=== PATIENT | female | born 1985 | race Caucasian/White ===

== ENCOUNTER 2019-05-21 14:00 | Inpatient (IN) | payer OTHER ==
[~2019-05-21 14:00] MED LIST: Bupivacaine 0.25% 10 ML SDV ONE
[2019-05-21] MEDS ORDERED: Sodium Chloride 0.9% 10 ML Syringe FLUSH PRN (14:06)
[2019-05-21] MEDS ORDERED: Ondansetron 4 MG/2 ML SDV IVPUSH PRN (14:06)
[2019-05-21] MEDS ORDERED: Nalbuphine 10 MG/1 ML Vial IVPUSH PRN (14:06)
[2019-05-21] MEDS ORDERED: Calcium Carbonate 500 MG Tab.Chew PO PRN (14:06)
[2019-05-21] MEDS ORDERED: Oxytocin/Lactated Ringers 10 UNIT/1,000 ML BAG IV SCH (14:15)
[2019-05-21] MEDS ORDERED: Lactated Ringers 1,000 ML IV SCH (14:15)
[2019-05-21] MEDS ORDERED: Betamethasone Acetate/Betamethasone Sod Phosphate 30 MG/5 ML MDV IM SCH (15:00)
[2019-05-21] MEDS ORDERED: Misoprostol 25 MCG (1/4 of 100 MCG) Tab ONE (15:05)
[2019-05-21] MEDS: Misoprostol 25 MCG (1/4 of 100 MCG) Tab VAG SCH ×3 (15:29→23:39)
[2019-05-21] MEDS ORDERED: Lidocaine 1% 50 ML MDV INJECT ONE (15:30)
--- NOTE | 2019-05-21 16:12 | PCM.PREANE ---
Preanesthetic Assessment - Procedure Proposed Procedure: latoya - Anesthesia/Transfusion/Family Hx Anesthesia History: Prior Anesthesia Without Reaction Family History of Anesthesia Reaction: No Transfusion History: No Prior Transfusion(s) - Review of Systems General: No Symptoms Pulmonary: No Symptoms Cardiovascular: No Symptoms Gastrointestinal: Nausea (on and off), Other (gerd) Neurological: No Symptoms Other: Reports: Anxiety - Physical Assessment Vital Signs: 97.5 16 96% 94 113/58 Height: 5 ft 6 in Weight: 138.21 kg ASA Class: 2 Mental Status: Alert & Oriented x3 Airway Class: Mallampati = 1 Dentition: Reports: Normal Dentition Thyro-Mental Finger Breadths: 3 Mouth Opening Finger Breadths: 3 ROM/Head Extension: Full Lungs: Clear to Auscultation, Normal Respiratory Effort Cardiovascular: Regular Rate, Regular Rhythm - Lab Values: Laboratory Last Values WBC 10.70 K/mm3 (3.98-10.04) H 05/21/19 14:20 RBC 4.65 M/mm3 (3.98-5.22) 05/21/19 14:20 Hgb 13.5 gm/dl (11.2-15.7) 05/21/19 14:20 Hct 40.2 % (34.1-44.9) 05/21/19 14:20 MCV 86.5 fl (79.4-94.8) 05/21/19 14:20 MCH 29.0 pg (25.6-32.2) 05/21/19 14:20 MCHC 33.6 g/dl (32.2-35.5) 05/21/19 14:20 RDW Std Deviation 42.3 fL (36.4-46.3) 05/21/19 14:20 Plt Count 314 K/mm3 (182-369) 05/21/19 14:20 MPV 11.1 fl (9.4-12.3) 05/21/19 14:20 Neut % (Auto) 74.7 % (34.0-71.1) H 05/21/19 14:20 Lymph % (Auto) 17.7 % (19.3-51.7) L 05/21/19 14:20 [place] % (Auto) 6.7 % (4.7-12.5) 05/21/19 14:20 Eos % (Auto) 0.5 (0.7-5.8) L 05/21/19 14:20 Baso % (Auto) 0.2 % (0.1-1.2) 05/21/19 14:20 Neut # (Auto) 8.00 K/mm3 (1.56-6.13) H 05/21/19 14:20 Lymph # (Auto) 1.89 K/mm3 (1.18-3.74) 05/21/19 14:20 Wood # (Auto) 0.72 K/mm3 (0.24-0.36) H 05/21/19 14:20 Eos # (Auto) 0.05 K/mm3 (0.04-0.36) 05/21/19 14:20 Baso # (Auto) 0.02 K/mm3 (0.01-0.08) 05/21/19 14:20 Sodium 136 mEq/L (136-145) 05/21/19 14:20 Potassium 4.1 mEq/L (3.5-5.1) 05/21/19 14:20 Chloride 102 mEq/L (98-107) 05/21/19 14:20 Carbon Dioxide 20 mEq/L (21-32) L 05/21/19 14:20 Anion Gap 18.1 (5-15) H 05/21/19 14:20 BUN 8 mg/dL (7-18) 05/21/19 14:20 Creatinine 0.7 mg/dL (0.55-1.02) 05/21/19 14:20 Est Cr Clr Drug Dosing 107.01 mL/min 05/21/19 14:20 Estimated GFR (MDRD) > 60 mL/min (>60) 05/21/19 14:20 BUN/Creatinine Ratio 11.4 (14-18) L 05/21/19 14:20 Glucose 133 mg/dL (74-106) H 05/21/19 14:20 Calcium 10.1 mg/dL (8.5-10.1) 05/21/19 14:20 Total Bilirubin 0.4 mg/dL (0.2-1.0) 05/21/19 14:20 AST 29 U/L (15-37) 05/21/19 14:20 ALT 57 U/L (14-59) 05/21/19 14:20 Alkaline Phosphatase 142 U/L (46-116) H 05/21/19 14:20 Total Protein 7.2 g/dl (6.4-8.2) 05/21/19 14:20 Albumin 2.7 g/dl (3.4-5.0) L 05/21/19 14:20 Globulin 4.5 gm/dL 05/21/19 14:20 Albumin/Globulin Ratio 0.6 (1-2) L 05/21/19 14:20 - Allergies Allergies/Adverse Reactions: Allergies Allergy/AdvReac Type Severity Reaction Status Date / Time No Known Allergies Allergy Verified 05/21/19 15:04 - Blood Blood Available: No - Acknowledgements Anesthesia Type Planned: Epidural Pt an Appropriate Candidate for the Planned Anesthesia: Yes Alternatives and Risks of Anesthesia Discussed w Pt/Guardian: Yes Pt/Guardian Understands and Agrees with Anesthesia Plan: Yes PreAnesthesia Questionnaire Cardiovascular History: Reports: None Respiratory History: Reports: Asthma (outgrew it- albuteral inhaler with colds) Gastrointestinal History: Reports: GERD : 1 (36 6 weeks) Para: 0 Psychiatric History: Reports: Anxiety Endocrine/Metabolic History: Reports: Obesity/BMI 30+ Oncologic (Cancer) History: Reports: None - Past Surgical History HEENT Surgical History: Reports: Tonsillectomy - SUBSTANCE USE Smoking Status *Q: Never Smoker Tobacco Use Within Last Twelve Months: No Second Hand Smoke Exposure: No Days Per Week of Alcohol Use: 0 Recreational Drug Use History: No - HOME MEDS Home Medications: Home Meds Doxylamine Succinate [Unisom] 25 mg PO BEDTIME 05/21/19 [History] Pnv No.122/Iron/Folic Acid [ Multi Tablet] 1 each PO DAILY 05/21/19 [ History] - CURRENT (IN HOUSE) MEDS Current Meds: Current Medications Betamethasone Acet/Betameth SodPhos (Celestone Soluspan 6 Mg/Ml) 12 mg IM Q24H BALWINDER Stop: 05/22/19 15:01 Last Admin: 05/21/19 15:25 Dose: 12 mg Calcium Carbonate/Glycine (Tums) 1,000 mg PO Q2H PRN PRN Reason: Indigestion Lactated Ringer's (Ringers, Lactated) 1,000 mls @ 100 mls/hr IV ASDIRECTED BALWINDER Oxytocin/Lactated Ringer's (Pitocin In Lr 10 Units/1,000 Ml) 10 unit in 1,000 mls @ 12 mls/hr IV TITRATE BALWINDER; Protocol Misoprostol (Cytotec) 25 mcg VAG Q4H BALWINDER Last Admin: 05/21/19 15:29 Dose: 25 mcg Nalbuphine HCl (Nubain) 10 mg IVPUSH Q2H PRN PRN Reason: Pain Ondansetron HCl (Zofran) 4 mg IVPUSH Q4H PRN PRN Reason: Nausea/Vomiting Sodium Chloride (Saline Flush) 10 ml FLUSH ASDIRECTED PRN PRN Reason: Keep Vein Open Discontinued Medications Lidocaine HCl (Xylocaine 1%) 20 ml INJECT ONETIME ONE Stop: 05/21/19 15:31 Misoprostol (Cytotec) Confirm Administered Dose 25 mcg .ROUTE .STK-MED ONE Stop: 05/21/19 15:06
--- NOTE | 2019-05-21 16:48 | PCM.LDHP ---
L&D History of Present Illness - General Date of Service: 05/21/19 Admit Problem/Dx: Patient Status Order with Admit Dx/Problem 05/21/19 14:06 Patient Status [ADT] Routine Admission Diagnosis/Problem Admission Diagnosis/Problem Source of Information: Patient History Limitations: Reports: No Limitations - History of Present Illness Introduction:: Patient is a 33 y/o at 36 5/7 wks being admitted for presumed cholestasis of . Seen last week in clinic with pronounced itching across arms, legs, abdomen. Bile acids done previously and 5. Since last appointment these symptoms have worsened somewhat. Not able to sleep at night without Unisom due to itching. Has been trying a lot of lotion for concerns as well. Notes good FM. 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: : 1 Para: 0 LMP (Approximate): Psychiatric History: Reports: Anxiety, Depression Endocrine/Metabolic History: Reports: Obesity/BMI 30+ - Past Surgical History HEENT Surgical History: Reports: Tonsillectomy Social & Family History - Family History Family Medical History: Noncontributory - Tobacco Use Smoking Status *Q: Never Smoker Second Hand Smoke Exposure: No - Alcohol Use Alcohol Use History: No Days Per Week of Alcohol Use: 0 - Recreational Drug Use Recreational Drug Use: No H&P Review of Systems - Review of Systems: Review Of Systems: See Below General: Reports: No Symptoms Pulmonary: Reports: No Symptoms Cardiovascular: Reports: No Symptoms Gastrointestinal: Reports: No Symptoms Genitourinary: Reports: No Symptoms Musculoskeletal: Reports: No Symptoms Skin: Reports: Pruritis Psychiatric: Reports: No Symptoms Neurological: Reports: No Symptoms L&D Exam - Exam Exam: See Below - Vital Signs Vital Signs: Last Vital Signs Temp 36.4 C 05/21/19 14:06 Pulse 94 05/21/19 14:06 Resp 16 05/21/19 14:06 BP 113/58 L 05/21/19 14:06 Pulse Ox 96 05/21/19 14:06 Weight: 138.21 kg - OB Specific Contraction Intensity: Irritability Movement: Active Heart Tones: Present Heart Tones per Min: 135 Heart Rate (FHR) Variability: Moderate (6-25 bmp) Presentation: Vertex - Dickens Score Dickens Score Cervix Position: Midposition Dickens Score Consistency: Soft Dickens Score Effacement: 51-70% Dickens Score Dilation: 1-2 cm Dickens Score Infant's Station: -2 Dickens Score Total: 7 - Exam General: Alert, Oriented, Cooperative Lungs: Clear to Auscultation, Normal Respiratory Effort Cardiovascular: Regular Rate, Regular Rhythm GI/Abdominal Exam: Soft, Non-Tender Genitourinary: Normal external exam Extremities: Normal Inspection Skin: Warm, Dry, Intact - Patient Data Lab Results Last 24 hrs: Laboratory Results - last 24 hr 05/21/19 05/21/19 Range/Units 14:20 14:20 WBC 10.70 H (3.98-10.04) K/mm3 RBC 4.65 (3.98-5.22) M/mm3 Hgb 13.5 (11.2-15.7) gm/dl Hct 40.2 (34.1-44.9) % MCV 86.5 (79.4-94.8) fl MCH 29.0 (25.6-32.2) pg MCHC 33.6 (32.2-35.5) g/dl RDW Std Deviation 42.3 (36.4-46.3) fL Plt Count 314 (182-369) K/mm3 MPV 11.1 (9.4-12.3) fl Neut % (Auto) 74.7 H (34.0-71.1) % Lymph % (Auto) 17.7 L (19.3-51.7) % [place] % (Auto) 6.7 (4.7-12.5) % Eos % (Auto) 0.5 L (0.7-5.8) Baso % (Auto) 0.2 (0.1-1.2) % Neut # (Auto) 8.00 H (1.56-6.13) K/mm3 Lymph # (Auto) 1.89 (1.18-3.74) K/mm3 [place] # (Auto) 0.72 H (0.24-0.36) K/mm3 Eos # (Auto) 0.05 (0.04-0.36) K/mm3 Baso # (Auto) 0.02 (0.01-0.08) K/mm3 Sodium 136 (136-145) mEq/L Potassium 4.1 (3.5-5.1) mEq/L Chloride 102 (98-107) mEq/L Carbon Dioxide 20 L (21-32) mEq/L Anion Gap 18.1 H (5-15) BUN 8 (7-18) mg/dL Creatinine 0.7 (0.55-1.02) mg/dL Est Cr Clr Drug Dosing 107.01 mL/min Estimated GFR (MDRD) > 60 (>60) mL/min BUN/Creatinine Ratio 11.4 L (14-18) Glucose 133 H (74-106) mg/dL Calcium 10.1 (8.5-10.1) mg/dL Total Bilirubin 0.4 (0.2-1.0) mg/dL AST 29 (15-37) U/L ALT 57 (14-59) U/L Alkaline Phosphatase 142 H (46-116) U/L Total Protein 7.2 (6.4-8.2) g/dl Albumin 2.7 L (3.4-5.0) g/dl Globulin 4.5 gm/dL Albumin/Globulin Ratio 0.6 L (1-2) Result Diagrams: 05/21/19 14:20 05/21/19 14:20 - Problem List (1) 36 weeks gestation of SNOMED Code(s): 73931143 ICD Code: Z3A.36 - 36 WEEKS GESTATION OF Status: Acute Current Visit: Yes (2) GBS (group B Streptococcus carrier), +RV culture, currently SNOMED Code(s): 0532575366620, 803333608, 1374775376835 ICD Code: O99.820 - STREPTOCOCCUS B CARRIER STATE COMPLICATING Status: Acute Current Visit: Yes (3) Rubella non-immune status, antepartum SNOMED Code(s): 429858609 ICD Code: O99.89 - OTH DISEASES AND CONDITIONS COMPL PREG/CHLDBRTH; Z28.3 - UNDERIMMUNIZATION STATUS Status: Acute Current Visit: Yes (4) Cholestasis during SNOMED Code(s): 783814277 ICD Code: O26.619 - LIVER AND BILIARY TRACT DISORD IN , UNSP TRIMESTER; K83.1 - OBSTRUCTION OF BILE DUCT Status: Acute Current Visit: Yes Qualifiers: Trimester: third trimester Qualified Code(s): O26.613 - Liver and biliary tract disorders in , third trimester; K83.1 - Obstruction of bile duct Problem List Initiated/Reviewed/Updated: Yes Orders Last 24hrs: Active Orders 24 hr Category Date Time Status Patient Status [ADT] Routine ADT 05/21/19 14:06 Active Activity as Tolerated [RC] PFP Care 05/21/19 14:06 Active Communication Order [RC] ASDIRECTED Care 05/21/19 14:06 Active Communication Order [RC] ASDIRECTED Care 05/21/19 14:06 Active Communication Order [RC] ASDIRECTED Care 05/21/19 14:06 Active Communication Order [RC] ASDIRECTED Care 05/21/19 14:06 Active Monitoring [RC] INTERMITTENT Care 05/21/19 14:06 Active Notify Provider [RC] ASDIRECTED Care 05/21/19 14:06 Active Notify Provider [RC] PFP Care 05/21/19 14:06 Active Notify Provider [RC] PRN Care 05/21/19 14:06 Active Peripheral IV Care [RC] . DIRECTED Care 05/21/19 14:08 Active Pump Management, Intrathecal [RC] ASDIRECTED Care 05/21/19 14:08 Active Urinary Catheter Assessment [RC] ASDIRECTED Care 05/21/19 14:06 Active Regular Diet [DIET] Diet 05/21/19 Lunch Active BLOOD BANK HOLD SPECIMEN [BBK] Stat Lab 05/21/19 14:06 Ordered RAPID PLASMA REAGIN,RPR [CHEM] Stat Lab 05/21/19 14:06 Ordered Betamet Acet/Betamet Na Phos [Celestone Soluspan 6 MG/ Med 05/21/19 15:00 Active ML] 12 mg IM Q24H Calcium Carbonate [Tums] Med 05/21/19 14:06 Active 1,000 mg PO Q2H PRN Lactated Ringers [Ringers, Lactated] 1,000 ml Med 05/21/19 14:15 Active IV ASDIRECTED Nalbuphine [Nubain] Med 05/21/19 14:06 Active 10 mg IVPUSH Q2H PRN Ondansetron [Zofran] Med 05/21/19 14:06 Active 4 mg IVPUSH Q4H PRN Oxytocin/Lactated Ringers [Pitocin in LR 10 Units/1,000 Med 05/21/19 14:15 Active ML] 10 unit in 1,000 ml IV TITRATE Sodium Chloride 0.9% [Saline Flush] Med 05/21/19 14:06 Active 10 ml FLUSH ASDIRECTED PRN miSOPROStol [Cytotec] Med 05/21/19 15:30 Active 25 mcg VAG Q4H Electronic Heart Tones Ext w TOCO [WOMSER] Oth 05/21/19 14:06 Ordered Routine Electronic Heart Tones Internal [WOMSER] Per Unit Oth 05/21/19 14:06 Ordered Routine Peripheral IV Insertion Adult [OM.PC] Routine Oth 05/21/19 14:06 Ordered Resuscitation Status Routine Resus Stat 05/21/19 14:06 Ordered Medication Orders Betamethasone Acet/Betameth SodPhos (Celestone Soluspan 6 Mg/Ml) 12 mg IM Q24H BALWINDER Stop: 05/22/19 15:01 Last Admin: 05/21/19 15:25 Dose: 12 mg Calcium Carbonate/Glycine (Tums) 1,000 mg PO Q2H PRN PRN Reason: Indigestion Lactated Ringer's (Ringers, Lactated) 1,000 mls @ 100 mls/hr IV ASDIRECTED BALWINDER Oxytocin/Lactated Ringer's (Pitocin In Lr 10 Units/1,000 Ml) 10 unit in 1,000 mls @ 12 mls/hr IV TITRATE BALWINDER; Protocol Misoprostol (Cytotec) 25 mcg VAG Q4H BALWINDER Last Admin: 05/21/19 15:29 Dose: 25 mcg Nalbuphine HCl (Nubain) 10 mg IVPUSH Q2H PRN PRN Reason: Pain Ondansetron HCl (Zofran) 4 mg IVPUSH Q4H PRN PRN Reason: Nausea/Vomiting Sodium Chloride (Saline Flush) 10 ml FLUSH ASDIRECTED PRN PRN Reason: Keep Vein Open Assessment/Plan Comment:: Patient admitted for IOL for presumed cholestasis of * Bile acids pending * Labs drawn * Cytotec for start of IOL. Pitocin when able * Will need PCN in labor once becomes more active * Pain management per patient preference * Anticipate * MMR after delivery
[2019-05-21] MEDS ORDERED: DOXYLAMINE 25 MG PO SCH (21:00)
[2019-05-22] MEDS ORDERED: Penicillin G Potassium 5 MILLUNITS in Sodium Chloride 0.9% 100 ML IV ONE (04:00)
[2019-05-22] MEDS ORDERED: fentaNYL 100 MCG/2 ML SDV ONE (04:56)
[2019-05-22] MEDS ORDERED: diphenhydrAMINE 50 MG/ML SDV IVPUSH PRN ×2 (05:15→06:02)
[2019-05-22] MEDS ORDERED: fentaNYL/Bupivacaine/NS 2 MCG-0.125% 250 ML EPIDUR PRN (05:15)
[2019-05-22] MEDS ORDERED: fentaNYL 100 MCG/2 ML SDV EPIDUR PRN (05:15)
[2019-05-22] MEDS ORDERED: ePHEDrine 50 MG/ML SDV IVPUSH PRN (05:15)
[2019-05-22] MEDS ORDERED: ceFAZolin 2 GM in Premix Bag 1 BAG IV ONE (05:22)
[2019-05-22] MEDS ORDERED: ceFAZolin 1 GM in Premix Bag 1 BAG IV ONE (05:22)
[2019-05-22] MEDS ORDERED: Metoclopramide 10 MG/2 ML SDV IVPUSH ONE (05:22)
[2019-05-22] MEDS ORDERED: Citric Acid/Sodium Citrate Solution 30 ML Cup PO ONE (05:22)
[2019-05-22] MEDS ORDERED: ceFAZolin/Dextrose,Iso-Osmotic 2 GM/50 ML Duplex Bag IV ONE (05:25)
[2019-05-22] MEDS ORDERED: Azithromycin 500 MG in Sodium Chloride 0.9% 250 ML IV ONE (05:25)
[2019-05-22] MEDS ORDERED: Morphine PF 10 MG/10 ML SDV ONE (05:45)
[2019-05-22] MEDS ORDERED: Ketorolac 30 MG/ML SDV ONE (05:45)
[2019-05-22] MEDS ORDERED: Ondansetron 4 MG/2 ML SDV ONE (05:45)
[2019-05-22] MEDS ORDERED: Oxytocin 10 Units/1 ML SDV ONE (05:45)
[2019-05-22] MEDS ORDERED: Lactated Ringers 2,000 ML ONE (05:45)
[2019-05-22] MEDS ORDERED: ceFAZolin 1 GM Vial ONE (05:47)
[2019-05-22] MEDS ORDERED: Phenylephrine/Normal Saline 100 MCG/ML 10 ML Syringe ONE (05:48)
[2019-05-22] MEDS ORDERED: ePHEDrine/Normal Saline 25 MG/5 ML Syringe ONE (05:48)
[2019-05-22] MEDS ORDERED: Lidocaine 0.5% 50 ML SDV ONE (05:59)
[2019-05-22] MEDS ORDERED: Lidocaine 2% with EPINEPHrine 1:200,000 20 ML SDV ONE (05:59)
[2019-05-22] MEDS ORDERED: fentaNYL 100 MCG/2 ML SDV IVPUSH PRN (06:02)
[2019-05-22] MEDS ORDERED: Ondansetron 4 MG/2 ML SDV IVPUSH PRN (06:02)
[2019-05-22] MEDS: Methylergonovine 0.2 MG/1 ML Amp ONE (06:15)
--- NOTE | 2019-05-22 06:59 | PCM.OPNOTE ---
- General Post-Op/Procedure Note Date of Surgery/Procedure: 05/22/19 Operative Procedure(s): Primary low transverse Findings: Baby girl in a vertex presentation. APGARS of 2, 6, 8. Weight of 5 lbs 12 oz. Normal appearance of the uterus, fallopian tubes, and ovaries. Pre Op Diagnosis: 36 6/7 weeks. Presumed cholestasis of (bile acids pending). NRFS Post-Op Diagnosis: Same Anesthesia Technique: Epidural Primary Surgeon: Catalina Nobles Secondary Surgeon: Monique Olsen Anesthesia Provider: Kareem Richardson Reason Demand Planning Analyst Was Necessary: BMI of patient. Emergent nature of procedure. Speed and patient safety Pathology: Cord gas segment obtained. Cord blood obtained. Fluid Replacement, Intraop: 1,850 Output, Urine Amount: 25 EBL in mLs: 1,500 Complications: None Condition: Good Free Text/Narrative:: The risks, benefits, indications, potential complications, and alternatives were explained to the patient and informed consent obtained. After induction of anesthesia, the patient was placed in a supine position and then draped and prepped in the usual sterile manner. A Pfannenstiel incision was made and carried down through the subcutaneous tissue to the fascia. Fascial incision was made and extended transversely. The fascia was from the underlying rectus tissue superiorly and inferiorly. The peritoneum was identified and entered. Peritoneal incision was extended longitudinally. The utero-vesical peritoneal reflection was incised transversely and the bladder flap was bluntly freed from the lower uterine segment. A low transverse uterine incision was made sharply with a scalpel and extended bluntly in a cephalocaudad direction. A baby girl was delivered from a vertex presentation with APGARS as above. After the umbilical cord was clamped a segment was obtained for cord gas evaluation. Cord blood was obtained as well. The placenta was removed intact and appeared normal. The uterus was exteriorized and cleared of clots. The uterine outline, tubes and ovaries appeared normal. The uterine incision was closed with running locked sutures of 0 Vicryl. Hemostasis was obtained with a second imbricating layer of 0 Vicryl in addition to several interrupted sutures placed in figure of eight style. The uterus was then placed back into the abdomen. Uterus slightly abraided in area of hysterotomy. Alexei-seal placed along this surface. The infracolic gutters were cleared of blood clots. The fascia was then reapproximated with running sutures of 1 PDS. The subcutaneous tissue was irrigated with sterile warm normal saline, hemostasis obtained with cautery. This layer was closed with a running 0 vicryl suture. The skin was reapproximated with running Subcuticular 4-0 monocryl sutures. Instrument, sponge, and needle counts were correct prior the abdominal closure and at the conclusion of the case.
--- NOTE | 2019-05-22 07:03 | PCM.POSTAN ---
POST ANESTHESIA ASSESSMENT - MENTAL STATUS Mental Status: Alert, Oriented - VITAL SIGNS Vital Signs: Last Vital Signs Temp 97.7 F 05/22/19 06:39 Pulse 95 05/22/19 06:39 Resp 18 05/22/19 06:39 BP 108/63 05/22/19 06:39 Pulse Ox 97 05/22/19 06:39 - RESPIRATORY Respiratory Status: Respiratory Rate WNL, Airway Patent, O2 Saturation Stable, Supplemental Oxygen - CARDIOVASCULAR CV Status: Pulse Rate WNL, Blood Pressure Stable - GASTROINTESTINAL GI Status: No Symptoms - POST OP HYDRATION Hydration Status: Adequate & Stable
[2019-05-22] MEDS ORDERED: Dextrose 5%-Lactated Ringers 1,000 ML IV SCH (07:48)
[2019-05-22] MEDS: Misoprostol 25 MCG (1/4 of 100 MCG) Tab VAG SCH (07:52)
[2019-05-22] MEDS ORDERED: Penicillin G Potassium 2.5 MILLUNITS in Sodium Chloride 0.9% 100 ML IV SCH (08:00)
--- NOTE | 2019-05-22 08:05 | PCM48HPAN ---
Post Anesthesia Note - EVALUATION WITHIN 48HRS OF ANESTHETIC Vital Signs in Normal Range: Yes Patient Participated in Evaluation: Yes Respiratory Function Stable: Yes Airway Patent: Yes Cardiovascular Function Stable: Yes Hydration Status Stable: Yes Pain Control Satisfactory: Yes Nausea and Vomiting Control Satisfactory: Yes Mental Status Recovered: Yes Vital Signs: Last Vital Signs Temp 36.6 C 05/22/19 07:30 Pulse 83 05/22/19 07:30 Resp 19 05/22/19 07:30 BP 96/62 05/22/19 07:30 Pulse Ox 100 05/22/19 07:30
--- NOTE | 2019-05-22 08:36 | CR ---
Abdomen: Supine view of the abdomen was obtained. Comparison: No previous study. Bowel gas pattern appears normal. No abnormal calcifications or discrete soft tissue abnormality is seen. Bony structures appear within normal limits. Impression: 1. Nothing acute seen on single supine abdominal x-ray. Diagnostic code #1
[2019-05-22] MEDS ORDERED: Lactated Ringers 500 ML IV ONE (11:21)
[2019-05-22] MEDS: diphenhydrAMINE 50 MG/ML SDV IVPUSH PRN ×2 (12:02→20:06)
[2019-05-22] MEDS: Ketorolac 30 MG/ML SDV IVPUSH SCH ×2 (12:21→19:36)
--- NOTE | 2019-05-22 21:27 | PCM.SN ---
- Free Text/Narrative Note: Late entry - 529 Patient had received 3rd dose of cytotec around 2340. SROM around 0330. No further augmentation begun after this time. Patient became very uncomfortable and requested epidural. While nursing staff trying to get longer tracing prior to epidural they noted possible deceleration. I was on unit and performed SVE and noted patient to be 2-3 cm dilated, but 90% effaced. FSE applied with release of further clear fluid. With FSE able to see deep, wide, recurrent variables into the 60's lasting 45-[address] PHOTOGRAPHER already on unit. Epidural placed while OR crew alerted for stat . Patient given ancef and Azithromycin. Verbal consent obtained at time. Written consent obtained after conclusion of case. Catalina Nobles MD
[2019-05-23] MEDS: Ketorolac 30 MG/ML SDV IVPUSH SCH (01:30)
[2019-05-23] MEDS ORDERED: Ibuprofen 600 MG Tab PO PRN (06:00)
--- NOTE | 2019-05-23 07:20 | PCM.PNPP ---
- General Info Date of Service: 05/23/19 Functional Status: Reports: Pain Controlled, Tolerating Diet, Ambulating - Review of Systems General: Reports: No Symptoms Pulmonary: Reports: No Symptoms Cardiovascular: Reports: No Symptoms Gastrointestinal: Reports: Abdominal Pain (managed with medications ) Genitourinary: Reports: No Symptoms Musculoskeletal: Reports: No Symptoms - General Info Date of Service: 05/23/19 - Patient Data Vital Signs - Most Recent: Last Vital Signs Temp 36.7 C 05/22/19 08:03 Pulse 86 05/23/19 04:31 Resp 14 05/23/19 05:00 BP 109/63 05/23/19 04:31 Pulse Ox 95 05/23/19 04:31 Weight - Most Recent: 138.21 kg I&O - Last 24 Hours: Intake & Output 05/22/19 05/23/19 05/23/19 22:59 06:59 14:59 Intake Total 4550 Output Total 1375 550 Balance 3175 -550 Lab Results - Last 24 Hours: Laboratory Results - last 24 hr 05/22/19 Range/Units 05:39 Gel Antibody Screen Negative Med Orders - Current: Current Medications Diphenhydramine HCl (Benadryl) 25 mg IVPUSH Q6H PRN PRN Reason: Itching or Nausea Last Admin: 05/22/19 20:06 Dose: 25 mg Docusate Sodium (Colace) 100 mg PO Q12H PRN PRN Reason: Constipation Ibuprofen (Motrin) 600 mg PO Q6H PRN PRN Reason: mild pain or fever Ondansetron HCl (Zofran) 4 mg IVPUSH ONETIME PRN PRN Reason: Nausea/Vomiting Oxycodone/Acetaminophen (Percocet 325-5 Mg) 1 - 2 tab PO Q4H PRN PRN Reason: Pain (moderate 4-6) Discontinued Medications Betamethasone Acet/Betameth SodPhos (Celestone Soluspan 6 Mg/Ml) 12 mg IM Q24H [facility] Stop: 05/22/19 15:01 Last Admin: 05/21/19 15:25 Dose: 12 mg Bupivacaine HCl (Sensorcaine-Mpf 0.25%) 10 ml .ROUTE .STK-MED ONE Stop: 05/21/19 00:01 Calcium Carbonate/Glycine (Tums) 1,000 mg PO Q2H PRN PRN Reason: Indigestion Cefazolin Sodium (Ancef) Confirm Administered Dose 1 gm .ROUTE .STK-MED ONE Stop: 05/22/19 05:48 Cefazolin Sodium/Dextrose (Ancef) Confirm Administered Dose 2 gm IV .STK-MED ONE Stop: 05/22/19 05:26 Last Admin: 05/22/19 07:54 Dose: Not Given Citric Acid/Sodium Citrate (Bicitra Solution) 30 ml PO ONETIME ONE Stop: 05/22/19 05:23 Last Admin: 05/22/19 07:53 Dose: Not Given Diphenhydramine HCl (Benadryl) 25 mg IVPUSH Q6H PRN PRN Reason: pruritis Ephedrine Sulfate (Ephedrine Sulfate) 5 mg IVPUSH ASDIRECTED PRN PRN Reason: Hypotension Ephedrine Sulfate (Ephedrine In Ns) Confirm Administered Dose 25 mg .ROUTE .STK- MED ONE Stop: 05/22/19 05:49 Fentanyl (Sublimaze) Confirm Administered Dose 100 mcg .ROUTE .STK-MED ONE Stop: 05/22/19 04:57 Last Admin: 05/22/19 07:52 Dose: Not Given Fentanyl (Sublimaze) 100 mcg EPIDUR Q3H PRN PRN Reason: Pain Last Admin: 05/22/19 05:33 Dose: 100 mcg Fentanyl (Sublimaze) 50 mcg IVPUSH Q5M PRN PRN Reason: Pain Fentanyl/Bupivacaine HCl (Fentanyl/Bupivacaine/Ns 2 Mcg-0.125% 250 Ml) 0 ml EPIDUR CONTINUOUS PRN PRN Reason: Pain Lactated Ringer's (Ringers, Lactated) 1,000 mls @ 100 mls/hr IV ASDIRECTED [facility] Last Admin: 05/22/19 04:10 Dose: 100 mls/hr Oxytocin/Lactated Ringer's (Pitocin In Lr 10 Units/1,000 Ml) 10 unit in 1,000 mls @ 12 mls/hr IV TITRATE [facility]; Protocol Penicillin G Potassium 5 (millunits/ Sodium Chloride) 100 mls @ 55 mls/hr IV ONETIME ONE Stop: 05/22/19 05:49 Last Admin: 05/22/19 04:10 Dose: 55 mls/hr Penicillin G Potassium 2.5 (millunits/ Sodium Chloride) 100 mls @ 55 mls/hr IV Q4H [facility] Cefazolin Sodium/Dextrose 2 gm (/ Premix) 50 mls @ 100 mls/hr IV ONETIME ONE Stop: 05/22/19 05:51 Last Admin: 05/22/19 05:30 Dose: 100 mls/hr Cefazolin Sodium/Dextrose 1 gm (/ Premix) 50 mls @ 100 mls/hr IV ONETIME ONE Stop: 05/22/19 05:51 Last Admin: 05/22/19 05:20 Dose: 100 mls/hr Azithromycin 500 mg/ Sodium (Chloride) 250 mls @ 250 mls/hr IV ONETIME ONE Stop: 05/22/19 06:24 Last Admin: 05/22/19 05:30 Dose: 250 mls/hr Cefazolin Sodium/Dextrose (Ancef) Confirm Administered Dose 50 mls @ as directed .ROUTE .STK-MED ONE Stop: 05/22/19 05:26 Last Admin: 05/22/19 07:54 Dose: Not Given Lactated Ringer's (Ringers, Lactated) Confirm Administered Dose 2,000 mls @ as directed .ROUTE .STK-MED ONE Stop: 05/22/19 05:46 Dextrose/Lactated Ringer's (Dextrose 5%-Lactated Ringers) 1,000 mls @ 125 mls/ hr IV ASDIRECTED [facility] Stop: 05/22/19 15:47 Last Admin: 05/22/19 13:27 Dose: 125 mls/hr Lactated Ringer's (Ringers, Lactated) 500 mls @ 500 mls/hr IV .BOLUS ONE Stop: 05/22/19 12:20 Last Admin: 05/22/19 11:48 Dose: 500 mls/hr Ketorolac Tromethamine (Toradol) Confirm Administered Dose 30 mg .ROUTE .STK- MED ONE Stop: 05/22/19 05:46 Ketorolac Tromethamine (Toradol) 30 mg IVPUSH Q6H [facility] Stop: 05/23/19 00:31 Last Admin: 05/23/19 01:30 Dose: 30 mg Lidocaine HCl (Xylocaine 1%) 20 ml INJECT ONETIME ONE Stop: 05/21/19 15:31 Last Admin: 05/22/19 07:53 Dose: Not Given Lidocaine HCl (Xylocaine-Mpf 0.5%) Confirm Administered Dose 50 ml .ROUTE .STK- MED ONE Stop: 05/22/19 06:00 Lidocaine/Epinephrine (Xylocaine-Mpf 2%-Epi 1:200,000) Confirm Administered Dose 20 ml .ROUTE .STK-MED ONE Stop: 05/22/19 06:00 Methylergonovine Maleate (Methergine) Confirm Administered Dose 0.2 mg .ROUTE .STK-MED ONE Stop: 05/22/19 05:55 Metoclopramide HCl (Reglan) 10 mg IVPUSH ONETIME ONE Stop: 05/22/19 05:23 Last Admin: 05/22/19 07:54 Dose: Not Given Misoprostol (Cytotec) 25 mcg VAG Q4H [facility] Last Admin: 05/22/19 07:52 Dose: Not Given Misoprostol (Cytotec) Confirm Administered Dose 25 mcg .ROUTE .STK-MED ONE Stop: 05/21/19 15:06 Last Admin: 05/21/19 17:10 Dose: Not Given Morphine Sulfate (Duramorph Pf) Confirm Administered Dose 10 mg .ROUTE .STK-MED ONE Stop: 05/22/19 05:46 Nalbuphine HCl (Nubain) 10 mg IVPUSH Q2H PRN PRN Reason: Pain Ondansetron HCl (Zofran) 4 mg IVPUSH Q4H PRN PRN Reason: Nausea/Vomiting Ondansetron HCl (Zofran) Confirm Administered Dose 4 mg .ROUTE .STK-MED ONE Stop: 05/22/19 05:46 Oxytocin (Pitocin) Confirm Administered Dose 10 unit .ROUTE .STK-MED ONE Stop: 05/22/19 05:46 Doxylamine 25mg Tab (Own Med) 0 each PO BEDTIME [facility] Last Admin: 05/22/19 07:53 Dose: Not Given Phenylephrine HCl (Phenylephrine In Ns 100 Mcg/Ml) Confirm Administered Dose 1 mg .ROUTE .STK-MED ONE Stop: 05/22/19 05:49 Sodium Chloride (Saline Flush) 10 ml FLUSH ASDIRECTED PRN PRN Reason: Keep Vein Open - Infant Interaction Disposition, : in Room with Family Infant Interaction: Holding Infant Infant Feeding: Attempted ; Nursed Fair/Poor Support Person: - Recovery Exam Fundal Tone: Firm Fundal Level: At Umbilicus Fundal Placement: Midline Lochia Amount: Small Lochia Color: Rubra/Red Perineum Description: Intact, Minimal Bruising/Swelling Urinary Elimination: Indwelling Catheter - Exam General: Alert, Oriented, Cooperative Lungs: Clear to Auscultation, Normal Respiratory Effort Cardiovascular: Regular Rate, Regular Rhythm GI/Abdominal Exam: Soft, Tender (appropriate post op) Extremities: Normal Inspection Skin: Warm, Dry, Intact Wound/Incisions: Healing Well, No Drainage - Problem List & Annotations (1) 36 weeks gestation of SNOMED Code(s): 03954018 Code(s): Z3A.36 - 36 WEEKS GESTATION OF Status: Acute Current Visit: Yes (2) GBS (group B Streptococcus carrier), +RV culture, currently SNOMED Code(s): 4120823869542, 261613484, 9391191871293 Code(s): O99.820 - STREPTOCOCCUS B CARRIER STATE COMPLICATING Status: Acute Current Visit: Yes (3) Rubella non-immune status, antepartum SNOMED Code(s): 811046627 Code(s): O99.89 - OTH DISEASES AND CONDITIONS COMPL PREG/CHLDBRTH; Z28.3 - UNDERIMMUNIZATION STATUS Status: Acute Current Visit: Yes (4) Cholestasis during SNOMED Code(s): 499263055 Code(s): O26.619 - LIVER AND BILIARY TRACT DISORD IN , UNSP TRIMESTER; K83.1 - OBSTRUCTION OF BILE DUCT Status: Acute Current Visit: Yes Qualifiers: Trimester: third trimester Qualified Code(s): O26.613 - Liver and biliary tract disorders in , third trimester; K83.1 - Obstruction of bile duct (5) Non-reassuring electronic monitoring tracing SNOMED Code(s): 815900411 Code(s): O76 - ABNLT IN HEART RATE AND RHYTHM COMP LABOR AND DELIVERY Status: Acute Current Visit: Yes (6) Primary central sleep apnea SNOMED Code(s): 1907997989442 Code(s): G47.31 - PRIMARY CENTRAL SLEEP APNEA Status: Acute Current Visit : Yes (7) S/P primary low transverse SNOMED Code(s): 546338097, 36093943, 352953488, 232095000, 165653997 Code(s): Z98.891 - HISTORY OF UTERINE SCAR FROM PREVIOUS SURGERY Status: Acute Current Visit: Yes - Problem List Review Problem List Initiated/Reviewed/Updated: Yes - My Orders Last 24 Hours: My Active Orders 05/22/19 07:48 Activity as Tolerated [RC] .Routine Antiembolic Devices [RC] PER UNIT ROUTINE Communication Order [RC] PER UNIT ROUTINE Intake and Output [RC] Q4H Notify Provider Intake and Out [RC] ASDIRECTED RT Incentive Spirometry [RC] Q2HWA Acetaminophen/oxyCODONE [Percocet 325-5 MG] 1 - 2 tab PO Q4H PRN Docusate Sodium [Colace] 100 mg PO Q12H PRN diphenhydrAMINE [Benadryl] 25 mg IVPUSH Q6H PRN Assess Lochia [WOMSER] Per Unit Routine Assess Uterine Involution [WOMSER] Per Unit Routine Breast Pump [WOMSER] Per Unit Routine Peripheral IV Discontinue [OM.PC] Routine Sequential Compression Device [OM.PC] Per Unit Routine 05/22/19 Breakfast Regular Diet [DIET] 05/23/19 06:00 Ibuprofen [Motrin] 600 mg PO Q6H PRN 05/23/19 06:45 CBC W/O DIFF,HEMOGRAM [HEME] AM 05/23/19 06:55 Urinary Catheter Removal [RC] Per Unit Routine - Assessment Assessment:: 33 y/o G1 now P0101 POD#1 from [facility] at 36 6/7 wks for NRFS - Plan Plan:: * Routine cares * Encourage breast feeding * discharge home in 2 days
[2019-05-23] MEDS: Docusate Sodium 100 MG Cap PO PRN (08:13)
[2019-05-23] MEDS: Acetaminophen/oxyCODONE 325-5 MG Tab PO PRN ×4 (08:13→22:23)
[2019-05-23] MEDS: Methylergonovine 0.2 MG/1 ML Amp ONE (11:21)
[2019-05-24] MEDS: Acetaminophen/oxyCODONE 325-5 MG Tab PO PRN ×3 (06:54→19:36)
--- NOTE | 2019-05-24 06:57 | PCM.PNPP ---
- General Info Date of Service: 05/24/19 Functional Status: Reports: Pain Controlled, Tolerating Diet, Ambulating, Urinating - Review of Systems General: Reports: No Symptoms Pulmonary: Reports: No Symptoms Cardiovascular: Reports: No Symptoms Gastrointestinal: Reports: No Symptoms Genitourinary: Reports: No Symptoms Musculoskeletal: Reports: No Symptoms Skin: Denies: Pruritis (Completely resolved at this time) - Patient Data Vital Signs - Most Recent: Last Vital Signs Temp 36.7 C 05/24/19 03:02 Pulse 80 05/24/19 03:02 Resp 14 05/24/19 03:02 BP 107/69 05/24/19 03:02 Pulse Ox 96 05/24/19 03:02 Weight - Most Recent: 138.21 kg I&O - Last 24 Hours: Intake & Output 05/23/19 05/23/19 05/24/19 14:59 22:59 06:59 Intake Total 240 300 Output Total 1850 Balance -1610 300 Lab Results - Last 24 Hours: Laboratory Results - last 24 hr 05/23/19 Range/Units 06:45 WBC 12.20 H (3.98-10.04) K/mm3 RBC 3.35 L (3.98-5.22) M/mm3 Hgb 9.6 L D (11.2-15.7) gm/dl Hct 29.9 L (34.1-44.9) % MCV 89.3 (79.4-94.8) fl MCH 28.7 (25.6-32.2) pg MCHC 32.1 L (32.2-35.5) g/dl RDW Std Deviation 43.2 (36.4-46.3) fL Plt Count 240 (182-369) K/mm3 MPV 11.5 (9.4-12.3) fl Med Orders - Current: Current Medications Diphenhydramine HCl (Benadryl) 25 mg IVPUSH Q6H PRN PRN Reason: Itching or Nausea Last Admin: 05/22/19 20:06 Dose: 25 mg Docusate Sodium (Colace) 100 mg PO Q12H PRN PRN Reason: Constipation Last Admin: 05/23/19 08:13 Dose: 100 mg Ibuprofen (Motrin) 600 mg PO Q6H PRN PRN Reason: mild pain or fever Ondansetron HCl (Zofran) 4 mg IVPUSH ONETIME PRN PRN Reason: Nausea/Vomiting Oxycodone/Acetaminophen (Percocet 325-5 Mg) 1 - 2 tab PO Q4H PRN PRN Reason: Pain (moderate 4-6) Last Admin: 05/24/19 06:54 Dose: 1 tab Discontinued Medications Betamethasone Acet/Betameth SodPhos (Celestone Soluspan 6 Mg/Ml) 12 mg IM Q24H [facility] Stop: 05/22/19 15:01 Last Admin: 05/21/19 15:25 Dose: 12 mg Bupivacaine HCl (Sensorcaine-Mpf 0.25%) 10 ml .ROUTE .STK-MED ONE Stop: 05/21/19 00:01 Calcium Carbonate/Glycine (Tums) 1,000 mg PO Q2H PRN PRN Reason: Indigestion Cefazolin Sodium (Ancef) Confirm Administered Dose 1 gm .ROUTE .STK-MED ONE Stop: 05/22/19 05:48 Cefazolin Sodium/Dextrose (Ancef) Confirm Administered Dose 2 gm IV .STK-MED ONE Stop: 05/22/19 05:26 Last Admin: 05/22/19 07:54 Dose: Not Given Citric Acid/Sodium Citrate (Bicitra Solution) 30 ml PO ONETIME ONE Stop: 05/22/19 05:23 Last Admin: 05/22/19 07:53 Dose: Not Given Diphenhydramine HCl (Benadryl) 25 mg IVPUSH Q6H PRN PRN Reason: pruritis Ephedrine Sulfate (Ephedrine Sulfate) 5 mg IVPUSH ASDIRECTED PRN PRN Reason: Hypotension Ephedrine Sulfate (Ephedrine In Ns) Confirm Administered Dose 25 mg .ROUTE .STK- MED ONE Stop: 05/22/19 05:49 Fentanyl (Sublimaze) Confirm Administered Dose 100 mcg .ROUTE .STK-MED ONE Stop: 05/22/19 04:57 Last Admin: 05/22/19 07:52 Dose: Not Given Fentanyl (Sublimaze) 100 mcg EPIDUR Q3H PRN PRN Reason: Pain Last Admin: 05/22/19 05:33 Dose: 100 mcg Fentanyl (Sublimaze) 50 mcg IVPUSH Q5M PRN PRN Reason: Pain Fentanyl/Bupivacaine HCl (Fentanyl/Bupivacaine/Ns 2 Mcg-0.125% 250 Ml) 0 ml EPIDUR CONTINUOUS PRN PRN Reason: Pain Lactated Ringer's (Ringers, Lactated) 1,000 mls @ 100 mls/hr IV ASDIRECTED [facility] Last Admin: 05/22/19 04:10 Dose: 100 mls/hr Oxytocin/Lactated Ringer's (Pitocin In Lr 10 Units/1,000 Ml) 10 unit in 1,000 mls @ 12 mls/hr IV TITRATE [facility]; Protocol Penicillin G Potassium 5 (millunits/ Sodium Chloride) 100 mls @ 55 mls/hr IV ONETIME ONE Stop: 05/22/19 05:49 Last Admin: 05/22/19 04:10 Dose: 55 mls/hr Penicillin G Potassium 2.5 (millunits/ Sodium Chloride) 100 mls @ 55 mls/hr IV Q4H [facility] Cefazolin Sodium/Dextrose 2 gm (/ Premix) 50 mls @ 100 mls/hr IV ONETIME ONE Stop: 05/22/19 05:51 Last Admin: 05/22/19 05:30 Dose: 100 mls/hr Cefazolin Sodium/Dextrose 1 gm (/ Premix) 50 mls @ 100 mls/hr IV ONETIME ONE Stop: 05/22/19 05:51 Last Admin: 05/22/19 05:20 Dose: 100 mls/hr Azithromycin 500 mg/ Sodium (Chloride) 250 mls @ 250 mls/hr IV ONETIME ONE Stop: 05/22/19 06:24 Last Admin: 05/22/19 05:30 Dose: 250 mls/hr Cefazolin Sodium/Dextrose (Ancef) Confirm Administered Dose 50 mls @ as directed .ROUTE .STK-MED ONE Stop: 05/22/19 05:26 Last Admin: 05/22/19 07:54 Dose: Not Given Lactated Ringer's (Ringers, Lactated) Confirm Administered Dose 2,000 mls @ as directed .ROUTE .STK-MED ONE Stop: 05/22/19 05:46 Dextrose/Lactated Ringer's (Dextrose 5%-Lactated Ringers) 1,000 mls @ 125 mls/ hr IV ASDIRECTED [facility] Stop: 05/22/19 15:47 Last Admin: 05/22/19 13:27 Dose: 125 mls/hr Lactated Ringer's (Ringers, Lactated) 500 mls @ 500 mls/hr IV .BOLUS ONE Stop: 05/22/19 12:20 Last Admin: 05/22/19 11:48 Dose: 500 mls/hr Ketorolac Tromethamine (Toradol) Confirm Administered Dose 30 mg .ROUTE .STK- MED ONE Stop: 05/22/19 05:46 Ketorolac Tromethamine (Toradol) 30 mg IVPUSH Q6H [facility] Stop: 05/23/19 00:31 Last Admin: 05/23/19 01:30 Dose: 30 mg Lidocaine HCl (Xylocaine 1%) 20 ml INJECT ONETIME ONE Stop: 05/21/19 15:31 Last Admin: 05/22/19 07:53 Dose: Not Given Lidocaine HCl (Xylocaine-Mpf 0.5%) Confirm Administered Dose 50 ml .ROUTE .STK- MED ONE Stop: 05/22/19 06:00 Lidocaine/Epinephrine (Xylocaine-Mpf 2%-Epi 1:200,000) Confirm Administered Dose 20 ml .ROUTE .STK-MED ONE Stop: 05/22/19 06:00 Methylergonovine Maleate (Methergine) Confirm Administered Dose 0.2 mg .ROUTE .STK-MED ONE Stop: 05/22/19 05:55 Last Admin: 05/22/19 06:15 Dose: 0.2 mg Metoclopramide HCl (Reglan) 10 mg IVPUSH ONETIME ONE Stop: 05/22/19 05:23 Last Admin: 05/22/19 07:54 Dose: Not Given Misoprostol (Cytotec) 25 mcg VAG Q4H [facility] Last Admin: 05/22/19 07:52 Dose: Not Given Misoprostol (Cytotec) Confirm Administered Dose 25 mcg .ROUTE .STK-MED ONE Stop: 05/21/19 15:06 Last Admin: 05/21/19 17:10 Dose: Not Given Morphine Sulfate (Duramorph Pf) Confirm Administered Dose 10 mg .ROUTE .STK-MED ONE Stop: 05/22/19 05:46 Nalbuphine HCl (Nubain) 10 mg IVPUSH Q2H PRN PRN Reason: Pain Ondansetron HCl (Zofran) 4 mg IVPUSH Q4H PRN PRN Reason: Nausea/Vomiting Ondansetron HCl (Zofran) Confirm Administered Dose 4 mg .ROUTE .STK-MED ONE Stop: 05/22/19 05:46 Oxytocin (Pitocin) Confirm Administered Dose 10 unit .ROUTE .STK-MED ONE Stop: 05/22/19 05:46 Doxylamine 25mg Tab (Own Med) 0 each PO BEDTIME [facility] Last Admin: 05/22/19 07:53 Dose: Not Given Phenylephrine HCl (Phenylephrine In Ns 100 Mcg/Ml) Confirm Administered Dose 1 mg .ROUTE .STK-MED ONE Stop: 05/22/19 05:49 Sodium Chloride (Saline Flush) 10 ml FLUSH ASDIRECTED PRN PRN Reason: Keep Vein Open - Infant Interaction Infant Disposition, : in Room with Family Interaction: Holding Infant Feeding: Attempted ; Nursed Fair/Poor Support Person: - Recovery Exam Fundal Tone: Firm Fundal Level: At Umbilicus Fundal Placement: Midline Lochia Amount: Small Lochia Color: Rubra/Red Perineum Description: Intact, Minimal Bruising/Swelling Bladder Status: Voiding Urinary Elimination: Voided - Exam General: Alert, Oriented, Cooperative Lungs: Clear to Auscultation, Normal Respiratory Effort Cardiovascular: Regular Rate, Regular Rhythm GI/Abdominal Exam: Soft, Tender (appropriate post op) Extremities: Normal Inspection Skin: Warm, Dry, Intact Wound/Incisions: Healing Well, No Drainage - Problem List & Annotations (1) 36 weeks gestation of SNOMED Code(s): 44666731 Code(s): Z3A.36 - 36 WEEKS GESTATION OF Status: Acute Current Visit: Yes (2) GBS (group B Streptococcus carrier), +RV culture, currently SNOMED Code(s): 1898785661895, 662480988, 8735565968808 Code(s): O99.820 - STREPTOCOCCUS B CARRIER STATE COMPLICATING Status: Acute Current Visit: Yes (3) Rubella non-immune status, antepartum SNOMED Code(s): 170221095 Code(s): O99.89 - OTH DISEASES AND CONDITIONS COMPL PREG/CHLDBRTH; Z28.3 - UNDERIMMUNIZATION STATUS Status: Acute Current Visit: Yes (4) Cholestasis during SNOMED Code(s): 371836494 Code(s): O26.619 - LIVER AND BILIARY TRACT DISORD IN , UNSP TRIMESTER; K83.1 - OBSTRUCTION OF BILE DUCT Status: Acute Current Visit: Yes Qualifiers: Trimester: third trimester Qualified Code(s): O26.613 - Liver and biliary tract disorders in , third trimester; K83.1 - Obstruction of bile duct (5) Non-reassuring electronic monitoring tracing SNOMED Code(s): 500391529 Code(s): O76 - ABNLT IN HEART RATE AND RHYTHM COMP LABOR AND DELIVERY Status: Acute Current Visit: Yes (6) Primary central sleep apnea SNOMED Code(s): 7470419182181 Code(s): G47.31 - PRIMARY CENTRAL SLEEP APNEA Status: Acute Current Visit : Yes (7) S/P primary low transverse SNOMED Code(s): 213293450, 00356647, 014133094, 975867105, 834880822 Code(s): Z98.891 - HISTORY OF UTERINE SCAR FROM PREVIOUS SURGERY Status: Acute Current Visit: Yes - Problem List Review Problem List Initiated/Reviewed/Updated: Yes - My Orders Last 24 Hours: My Active Orders 05/23/19 06:00 Ibuprofen [Motrin] 600 mg PO Q6H PRN - Assessment Assessment:: 33 y/o G1 now P0101 POD#2 from [facility] at 36 6/7 wks for NRFS - Plan Plan:: * Routine cares * Encourage breast feeding * discharge home tomorrow
[2019-05-24] MEDS: Docusate Sodium 100 MG Cap PO PRN (12:51)
--- NOTE | 2019-05-25 06:24 | PCM.DCSUM1 ---
Discharge Summary - Discharge Data Discharge Date: 05/25/19 Discharge Disposition: Home, Self-Care 01 Condition: Good - Referral to Home Health Primary Care Physician: Catalina Nobles MD - Discharge Diagnosis/Problem(s) (1) 36 weeks gestation of SNOMED Code(s): 61032775 ICD Code: Z3A.36 - 36 WEEKS GESTATION OF Status: Acute Current Visit: Yes (2) GBS (group B Streptococcus carrier), +RV culture, currently SNOMED Code(s): 8353547962229, 990319014, 2379562758915 ICD Code: O99.820 - STREPTOCOCCUS B CARRIER STATE COMPLICATING Status: Acute Current Visit: Yes (3) Rubella non-immune status, antepartum SNOMED Code(s): 092693188 ICD Code: O99.89 - OTH DISEASES AND CONDITIONS COMPL PREG/CHLDBRTH; Z28.3 - UNDERIMMUNIZATION STATUS Status: Acute Current Visit: Yes (4) Cholestasis during SNOMED Code(s): 248682184 ICD Code: O26.619 - LIVER AND BILIARY TRACT DISORD IN , UNSP TRIMESTER; K83.1 - OBSTRUCTION OF BILE DUCT Status: Acute Current Visit: Yes Qualifiers: Trimester: third trimester Qualified Code(s): O26.613 - Liver and biliary tract disorders in , third trimester; K83.1 - Obstruction of bile duct (5) Non-reassuring electronic monitoring tracing SNOMED Code(s): 921064713 ICD Code: O76 - ABNLT IN HEART RATE AND RHYTHM COMP LABOR AND DELIVERY Status: Acute Current Visit: Yes (6) Primary central sleep apnea SNOMED Code(s): 9673208225562 ICD Code: G47.31 - PRIMARY CENTRAL SLEEP APNEA Status: Acute Current Visit: Yes (7) S/P primary low transverse SNOMED Code(s): 834430027, 19265830, 745502616, 733900578, 815491325 ICD Code: Z98.891 - HISTORY OF UTERINE SCAR FROM PREVIOUS SURGERY Status: Acute Current Visit: Yes - Patient Summary/Data Operative Procedure(s) Performed: Primary low transverse Complications: None Consults: None Recommended Follow-up Testing/Procedures: Follow up in 1 week for incision / post op check Hospital Course: Patient is a 33 y/o at 36 5/7 wks who was admitted for IOL for concerns of cholestasis of . Bile acids drawn. IOL started with cytotec. after 3rd dose of cytotec patient had SROM. After SROM her labor became much stronger and with this there was noted to be recurrent, deep, wide variables. Due to concerns of NRFS patient taken for emergent . See operative note for full details. she did well. She was discharged home on POD #3 - Patient Instructions Diet: Regular Diet as Tolerated Activity: No Lifting Over 10 Pounds Activity, Other: Pelvic rest for 6 weeks Driving: Do Not Drive (while taking narcotics ) Showering/Bathing: May Shower, No Tub Bathing/Swimming Wound/Incision Care: Keep Operative Site/Wound Site Clean and Dry Notify Provider of: Fever, Increased Pain, Swelling and Redness, Drainage, Nausea and/or Vomiting - Discharge Plan *PRESCRIPTION DRUG MONITORING PROGRAM REVIEWED*: Not Applicable *COPY OF PRESCRIPTION DRUG MONITORING REPORT IN PATIENT HILDA: Not Applicable Prescriptions/Med Rec: Acetaminophen/oxyCODONE [Percocet 325-5 MG] 1 - 2 tab PO Q4H PRN #20 tablet PRN Reason: Pain (Moderate 4-6) Home Medications: Home Meds Doxylamine Succinate [Unisom] 25 mg PO BEDTIME 05/21/19 [History] Pnv No.122/Iron/Folic Acid [ Multi Tablet] 1 each PO DAILY 05/21/19 [ History] Acetaminophen/oxyCODONE [Percocet 325-5 MG] 1 - 2 tab PO Q4H PRN #20 tablet 08/12 [Rx] Docusate Sodium [Colace] 100 mg PO Q12H PRN cap 05/25/19 [Rx] Ibuprofen [Motrin] 600 mg PO Q6H PRN tablet 05/25/19 [Rx] Patient Handouts: VIS, MMR (Measles, Mumps, and Rubella) - CDC (09/05/2017) Referrals: Catalina Nobles MD [Primary Care Provider] - (1 week for incision check ) - Discharge Summary/Plan Comment DC Time >30 min.: No - Patient Data Vitals - Most Recent: Last Vital Signs Temp 36.8 C 05/24/19 20:03 Pulse 66 05/25/19 05:59 Resp 14 05/25/19 05:59 BP 110/71 05/25/19 05:59 Pulse Ox 94 L 05/25/19 05:59 Weight - Most Recent: 138.21 kg I&O - Last 24 hours: Intake & Output 05/24/19 05/24/19 05/25/19 14:59 22:59 06:59 Intake Total 640 Balance 640 Med Orders - Current: Current Medications Diphenhydramine HCl (Benadryl) 25 mg IVPUSH Q6H PRN PRN Reason: Itching or Nausea Last Admin: 05/22/19 20:06 Dose: 25 mg Docusate Sodium (Colace) 100 mg PO Q12H PRN PRN Reason: Constipation Last Admin: 05/24/19 12:51 Dose: 100 mg Ibuprofen (Motrin) 600 mg PO Q6H PRN PRN Reason: mild pain or fever Ondansetron HCl (Zofran) 4 mg IVPUSH ONETIME PRN PRN Reason: Nausea/Vomiting Oxycodone/Acetaminophen (Percocet 325-5 Mg) 1 - 2 tab PO Q4H PRN PRN Reason: Pain (moderate 4-6) Last Admin: 05/24/19 19:36 Dose: 1 tab Discontinued Medications Betamethasone Acet/Betameth SodPhos (Celestone Soluspan 6 Mg/Ml) 12 mg IM Q24H BALWINDER Stop: 05/22/19 15:01 Last Admin: 05/21/19 15:25 Dose: 12 mg Bupivacaine HCl (Sensorcaine-Mpf 0.25%) 10 ml .ROUTE .STK-MED ONE Stop: 05/21/19 00:01 Calcium Carbonate/Glycine (Tums) 1,000 mg PO Q2H PRN PRN Reason: Indigestion Cefazolin Sodium (Ancef) Confirm Administered Dose 1 gm .ROUTE .STK-MED ONE Stop: 05/22/19 05:48 Cefazolin Sodium/Dextrose (Ancef) Confirm Administered Dose 2 gm IV .STK-MED ONE Stop: 05/22/19 05:26 Last Admin: 05/22/19 07:54 Dose: Not Given Citric Acid/Sodium Citrate (Bicitra Solution) 30 ml PO ONETIME ONE Stop: 05/22/19 05:23 Last Admin: 05/22/19 07:53 Dose: Not Given Diphenhydramine HCl (Benadryl) 25 mg IVPUSH Q6H PRN PRN Reason: pruritis Ephedrine Sulfate (Ephedrine Sulfate) 5 mg IVPUSH ASDIRECTED PRN PRN Reason: Hypotension Ephedrine Sulfate (Ephedrine In Ns) Confirm Administered Dose 25 mg .ROUTE .STK- MED ONE Stop: 05/22/19 05:49 Fentanyl (Sublimaze) Confirm Administered Dose 100 mcg .ROUTE .STK-MED ONE Stop: 05/22/19 04:57 Last Admin: 05/22/19 07:52 Dose: Not Given Fentanyl (Sublimaze) 100 mcg EPIDUR Q3H PRN PRN Reason: Pain Last Admin: 05/22/19 05:33 Dose: 100 mcg Fentanyl (Sublimaze) 50 mcg IVPUSH Q5M PRN PRN Reason: Pain Fentanyl/Bupivacaine HCl (Fentanyl/Bupivacaine/Ns 2 Mcg-0.125% 250 Ml) 0 ml EPIDUR CONTINUOUS PRN PRN Reason: Pain Lactated Ringer's (Ringers, Lactated) 1,000 mls @ 100 mls/hr IV ASDIRECTED BALWINDER Last Admin: 05/22/19 04:10 Dose: 100 mls/hr Oxytocin/Lactated Ringer's (Pitocin In Lr 10 Units/1,000 Ml) 10 unit in 1,000 mls @ 12 mls/hr IV TITRATE BALWINDER; Protocol Penicillin G Potassium 5 (millunits/ Sodium Chloride) 100 mls @ 55 mls/hr IV ONETIME ONE Stop: 05/22/19 05:49 Last Admin: 05/22/19 04:10 Dose: 55 mls/hr Penicillin G Potassium 2.5 (millunits/ Sodium Chloride) 100 mls @ 55 mls/hr IV Q4H BALWINDER Cefazolin Sodium/Dextrose 2 gm (/ Premix) 50 mls @ 100 mls/hr IV ONETIME ONE Stop: 05/22/19 05:51 Last Admin: 05/22/19 05:30 Dose: 100 mls/hr Cefazolin Sodium/Dextrose 1 gm (/ Premix) 50 mls @ 100 mls/hr IV ONETIME ONE Stop: 05/22/19 05:51 Last Admin: 05/22/19 05:20 Dose: 100 mls/hr Azithromycin 500 mg/ Sodium (Chloride) 250 mls @ 250 mls/hr IV ONETIME ONE Stop: 05/22/19 06:24 Last Admin: 05/22/19 05:30 Dose: 250 mls/hr Cefazolin Sodium/Dextrose (Ancef) Confirm Administered Dose 50 mls @ as directed .ROUTE .STK-MED ONE Stop: 05/22/19 05:26 Last Admin: 05/22/19 07:54 Dose: Not Given Lactated Ringer's (Ringers, Lactated) Confirm Administered Dose 2,000 mls @ as directed .ROUTE .STK-MED ONE Stop: 05/22/19 05:46 Dextrose/Lactated Ringer's (Dextrose 5%-Lactated Ringers) 1,000 mls @ 125 mls/ hr IV ASDIRECTED [facility] Stop: 05/22/19 15:47 Last Admin: 05/22/19 13:27 Dose: 125 mls/hr Lactated Ringer's (Ringers, Lactated) 500 mls @ 500 mls/hr IV .BOLUS ONE Stop: 05/22/19 12:20 Last Admin: 05/22/19 11:48 Dose: 500 mls/hr Ketorolac Tromethamine (Toradol) Confirm Administered Dose 30 mg .ROUTE .STK- MED ONE Stop: 05/22/19 05:46 Ketorolac Tromethamine (Toradol) 30 mg IVPUSH Q6H [facility] Stop: 05/23/19 00:31 Last Admin: 05/23/19 01:30 Dose: 30 mg Lidocaine HCl (Xylocaine 1%) 20 ml INJECT ONETIME ONE Stop: 05/21/19 15:31 Last Admin: 05/22/19 07:53 Dose: Not Given Lidocaine HCl (Xylocaine-Mpf 0.5%) Confirm Administered Dose 50 ml .ROUTE .STK- MED ONE Stop: 05/22/19 06:00 Lidocaine/Epinephrine (Xylocaine-Mpf 2%-Epi 1:200,000) Confirm Administered Dose 20 ml .ROUTE .STK-MED ONE Stop: 05/22/19 06:00 Methylergonovine Maleate (Methergine) Confirm Administered Dose 0.2 mg .ROUTE .STK-MED ONE Stop: 05/22/19 05:55 Last Admin: 05/22/19 06:15 Dose: 0.2 mg Metoclopramide HCl (Reglan) 10 mg IVPUSH ONETIME ONE Stop: 05/22/19 05:23 Last Admin: 05/22/19 07:54 Dose: Not Given Misoprostol (Cytotec) 25 mcg VAG Q4H [facility] Last Admin: 05/22/19 07:52 Dose: Not Given Misoprostol (Cytotec) Confirm Administered Dose 25 mcg .ROUTE .STK-MED ONE Stop: 05/21/19 15:06 Last Admin: 05/21/19 17:10 Dose: Not Given Morphine Sulfate (Duramorph Pf) Confirm Administered Dose 10 mg .ROUTE .STK-MED ONE Stop: 05/22/19 05:46 Nalbuphine HCl (Nubain) 10 mg IVPUSH Q2H PRN PRN Reason: Pain Ondansetron HCl (Zofran) 4 mg IVPUSH Q4H PRN PRN Reason: Nausea/Vomiting Ondansetron HCl (Zofran) Confirm Administered Dose 4 mg .ROUTE .STK-MED ONE Stop: 05/22/19 05:46 Oxytocin (Pitocin) Confirm Administered Dose 10 unit .ROUTE .STK-MED ONE Stop: 05/22/19 05:46 Doxylamine 25mg Tab (Own Med) 0 each PO BEDTIME [facility] Last Admin: 05/22/19 07:53 Dose: Not Given Phenylephrine HCl (Phenylephrine In Ns 100 Mcg/Ml) Confirm Administered Dose 1 mg .ROUTE .STK-MED ONE Stop: 05/22/19 05:49 Sodium Chloride (Saline Flush) 10 ml FLUSH ASDIRECTED PRN PRN Reason: Keep Vein Open
[2019-05-25] MEDS: Acetaminophen/oxyCODONE 325-5 MG Tab PO PRN (06:45)
[2019-05-25] MEDS ORDERED: Measles, Mumps & Rubella Vaccine 0.5 ML SDV SUBCUT ONE (07:52)
== END 2019-05-25 13:00 | disposition home or self-care (01) | DRG 786 ==
LOC: JD.OBCHECK 14:00 → JD.OB 14:04 → JD.OBCHECK 14:05 → JD.OB 19:40 → JD.MS 19:43 → JD.OB 19:48 → OBSVTOIN 05-22 05:45 → JD.OB 05-22 07:58
PROVIDERS: ADMIT Obstetrics & Gynecology; ATTEND Obstetrics & Gynecology
PROC: 3E0P7VZ Introduction of Hormone into Female Reproductive, Via Natural or Artificial Opening (ICD-10-PCS; principal; 2019-05-22)
PROC: 10D00Z1 Extraction of Products of Conception, Low, Open Approach (ICD-10-PCS; 2019-05-22)
PROC: 4A1HXCZ Monitoring of Products of Conception, Cardiac Rate, External Approach (ICD-10-PCS; 2019-05-22)
DX: O26.62 Liver and biliary tract disorders in childbirth (principal); K83.1 Obstruction of bile duct; O99.354 Diseases of the nervous system complicating childbirth; O99.824 Streptococcus B carrier state complicating childbirth; Z37.0 Single live birth; Z3A.36 36 weeks gestation of pregnancy; Z79.899 Other long term (current) drug therapy; O76 Abnormality in fetal heart rate and rhythm complicating labor and delivery; G47.31 Primary central sleep apnea
CPT/HCPCS: 01967; 01968; 36415; 59025; 74018; 74018-26; 80053; 85025; 85027; 86592; 86850; 86900; 86901; 90471; 90707; A9270-GY; J0456; J0690; J0702; J1200; J1885; J2001; J2210; J2270; J2370; J2405; J2540; J2590; J3010; J3490; J7030; J7042; J7050; J7120

== ENCOUNTER 2020-12-04 07:00 | Inpatient (IN) | payer OTHER ==
[~2020-12-04 07:00] MED LIST changes: -Bupivacaine 0.25% 10 ML SDV ONE; +Lactated Ringers 1,000 ML IV SCH; +Sodium Chloride 0.9% 10 ML Syringe FLUSH PRN
--- NOTE | 2020-12-04 07:52 | PCM.PREANE ---
Preanesthetic Assessment - Procedure Proposed Procedure: Repeat C section - Anesthesia/Transfusion/Family Hx Anesthesia History: Prior Anesthesia Without Reaction Family History of Anesthesia Reaction: No Transfusion History: No Prior Transfusion(s) Intubation History: Unknown - Review of Systems General: No Symptoms Pulmonary: No Symptoms (Asthma- last used albuterol inhaler in one year.) Cardiovascular: No Symptoms Gastrointestinal: No Symptoms (GERD) Neurological: No Symptoms, Headache (occasional migraines) Other: Reports: None, Anxiety - Physical Assessment NPO Status Date: 12/03/20 NPO Status Time: 20:00 Vital Signs: HR: 93 B/P: 121/78 Resp: 20 Spo2=97% Temp: 99.1 Height: 1.68 m Weight: 141.702 kg ASA Class: 3 Mental Status: Alert & Oriented x3 Airway Class: Mallampati = 2 Dentition: Reports: Normal Dentition, [place](s), Caries Thyro-Mental Finger Breadths: 3 Mouth Opening Finger Breadths: 3 ROM/Head Extension: Full Lungs: Clear to Auscultation, Normal Respiratory Effort Cardiovascular: Regular Rate, Regular Rhythm, No Murmurs - Lab Values: Awaiting lab values. - Allergies Allergies/Adverse Reactions: Allergies Allergy/AdvReac Type Severity Reaction Status Date / Time No Known Allergies Allergy Verified 05/21/19 15:04 - Anesthesia Plan Pre-Op Medication Ordered: None - Acknowledgements Anesthesia Type Planned: Spinal Pt an Appropriate Candidate for the Planned Anesthesia: Yes Alternatives and Risks of Anesthesia Discussed w Pt/Guardian: Yes Pt/Guardian Understands and Agrees with Anesthesia Plan: Yes PreAnesthesia Questionnaire HEENT History: Reports: Other (See Below) Other HEENT History: wears glasses Cardiovascular History: Reports: None Respiratory History: Reports: Asthma Gastrointestinal History: Reports: GERD [employer]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: Psychiatric History: Reports: Anxiety, Depression Endocrine/Metabolic History: Reports: Obesity/BMI 30+ Oncologic (Cancer) History: Reports: None - Past Surgical History HEENT Surgical History: Reports: Adenoidectomy, Tonsillectomy Female Surgical History: Reports: Section - SUBSTANCE USE Tobacco Use Status *Q: Never Tobacco User Second Hand Smoke Exposure: No Recreational Drug Use History: No - HOME MEDS Home Medications: Home Meds Doxylamine Succinate [Unisom] 25 mg PO BEDTIME 05/21/19 [History] No122/Iron/Folic Acid [ Multi Tablet] 1 each PO DAILY 05/21/19 [History] Acetaminophen/oxyCODONE [Percocet 325-5 MG] 1 - 2 tab PO Q4H PRN #20 tablet 05/25/19 [Rx] Docusate Sodium [Colace] 100 mg PO Q12H PRN cap 05/25/19 [Rx] Ibuprofen [Motrin] 600 mg PO Q6H PRN tablet 05/25/19 [Rx] - CURRENT (IN HOUSE) MEDS Current Meds: Current Medications Citric Acid/Sodium Citrate (Citric Acid/Sodium Citrate Solution 30 Ml Cup) 30 ml PO ONETIME ONE Stop: 12/04/20 09:01 Lactated Ringer's (Ringers, Lactated) 1,000 mls @ 125 mls/hr IV ASDIRECTED BALWINDER Cefazolin Sodium/Dextrose 1 gm (/ Premix) 50 mls @ 100 mls/hr IV ONETIME ONE Stop: 12/04/20 10:14 Cefazolin Sodium/Dextrose 2 gm (/ Premix) 50 mls @ 100 mls/hr IV ONETIME ONE Stop: 12/04/20 10:14 Oxytocin/Lactated Ringer's (Pitocin In Lr 10 Units/1,000 Ml) 10 unit in 1,000 mls @ 100 mls/hr IV ASDIRECTED BALWINDER Metoclopramide HCl (Metoclopramide 10 Mg/2 Ml Sdv) 10 mg IVPUSH ONETIME ONE Stop: 12/04/20 09:01 Sodium Chloride (Sodium Chloride 0.9% 10 Ml Syringe) 10 ml FLUSH ASDIRECTED PRN PRN Reason: Keep Vein Open
[2020-12-04] MEDS ORDERED: Ondansetron 4 MG/2 ML SDV ONE (08:22)
[2020-12-04] MEDS ORDERED: Lactated Ringers 2,000 ML ONE (08:22)
[2020-12-04] MEDS ORDERED: ceFAZolin 1 GM Vial ONE ×2 (08:22)
[2020-12-04] MEDS ORDERED: Oxytocin 10 Units/1 ML SDV ONE (08:22)
[2020-12-04] MEDS ORDERED: Ketorolac 30 MG/ML SDV ONE (08:22)
[2020-12-04] MEDS ORDERED: Morphine PF 10 MG/10 ML SDV ONE (08:23)
[2020-12-04] MEDS ORDERED: Citric Acid/Sodium Citrate Solution 30 ML Cup PO ONE (09:00)
[2020-12-04] MEDS ORDERED: Metoclopramide 10 MG/2 ML SDV IVPUSH ONE (09:00)
--- NOTE | 2020-12-04 09:16 | PCM.OPNOTE ---
- General Post-Op/Procedure Note Date of Surgery/Procedure: 12/04/20 Operative Procedure(s): Repeat low transverse Findings: Moderate scar tissue between the rectus and fascia. A lot of filmy adhesions between the omentum, peritoneum, and uterus. Baby Girl in vertex presentation. Weight of 8 lbs 8 oz. APGARS of 8 & 8 Pre Op Diagnosis: Maternal BMI > 50. History of . 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 Speed, safety of procedure. Pathology: Cord blood collected. Placenta discarded. Fluid Replacement, Intraop: 2,500 Output, Urine Amount: 75 EBL in mLs: 1,000 Complications: None Condition: Good Free Text/Narrative:: The risks, benefits, indications, potential complications, and alternatives were explained to the patient and informed consent obtained. After induction of anesthesia, the patient was placed in a supine position and then draped and prepped in the usual sterile manner. A Pfannenstiel incision was made and carried down through the subcutaneous tissue to the fascia. Fascial incision was made and extended transversely. The fascia was from the underlying rectus tissue superiorly and inferiorly. The peritoneum was identified and entered. Peritoneal incision was extended longitudinally. The utero-vesical peritoneal reflection was incised transversely and the bladder flap was bluntly freed from the lower uterine segment. A low transverse uterine incision was made sharply with a scalpel and extended bluntly in a cephalocaudad direction. A baby girl was delivered from a vertex presentation with APGARS as above. After the umbilical cord was clamped and cut cord blood was obtained for evaluation. The placenta was removed intact and appeared normal. The uterus was freed of adhesive disease using a Metzenbaum scissors to allow exteriorization. Once exteriorized the uterus was cleared of clots. The uterine outline, tubes, and ovaries appeared normal. The uterine incision was closed with running locked sutures of 0 Vicryl. Hemostasis was obtained with a second imbricating layer of 0 Vicryl. The uterus was then placed back into the abdomen. The infracolic gutters were cleared of blood clots. The fascia was then reapproximated with running sutures of 1 PDS. The subcutaneous tissue was irrigated with sterile warm normal saline, hemostasis obtained with cautery. The subcutaneous tissues were closed with 2 layers of 0 Vicryl. The skin was reapproximated with running Subcuticular 4-0 Monocryl sutures. Instrument, sponge, and needle counts were correct prior the abdominal closure and at the conclusion of the case.
[2020-12-04] MEDS ORDERED: ceFAZolin 1 GM in Premix Bag 1 BAG IV ONE (09:45)
[2020-12-04] MEDS ORDERED: ceFAZolin 2 GM in Premix Bag 1 BAG IV ONE (09:45)
[2020-12-04] MEDS ORDERED: Oxytocin/Lactated Ringers 10 UNIT/1,000 ML BAG IV SCH (10:00)
[2020-12-04] MEDS ORDERED: fentaNYL 100 MCG/2 ML SDV IVPUSH PRN (10:20)
[2020-12-04] MEDS ORDERED: diphenhydrAMINE 50 MG/ML SDV IVPUSH PRN ×2 (10:20→12:18)
[2020-12-04] MEDS ORDERED: Ondansetron 4 MG/2 ML SDV IVPUSH PRN (10:20)
--- NOTE | 2020-12-04 10:46 | PCM.POSTAN ---
POST ANESTHESIA ASSESSMENT - MENTAL STATUS Mental Status: Alert, Oriented - VITAL SIGNS Vital Signs: Last Vital Signs Temp 37.3 C 12/04/20 08:44 Pulse Resp BP 121/78 12/04/20 08:44 Pulse Ox 1040 115/61 66 14 98% 97.3F - RESPIRATORY Respiratory Status: Respiratory Rate WNL, Airway Patent, O2 Saturation Stable - CARDIOVASCULAR CV Status: Pulse Rate WNL, Blood Pressure Stable - GASTROINTESTINAL GI Status: No Symptoms - PAIN Pain Score: 0 - POST OP HYDRATION Hydration Status: Adequate & Stable
[2020-12-04] MEDS ORDERED: ePHEDrine 50 MG/ML SDV IVPUSH PRN (12:18)
[2020-12-04] MEDS ORDERED: Dextrose 5%-Lactated Ringers 1,000 ML IV SCH (12:18)
[2020-12-04] MEDS ORDERED: Naloxone 0.4 MG/ML SDV IVPUSH PRN (12:18)
[2020-12-04] MEDS ORDERED: Acetaminophen/oxyCODONE 325-5 MG Tab PO PRN (12:18)
[2020-12-04] MEDS ORDERED: Ondansetron 4 MG/2 ML SDV IV PRN (12:18)
[2020-12-04] MEDS: Acetaminophen/oxyCODONE 325-5 MG Tab PO PRN ×2 (12:48→19:20)
[2020-12-04] MEDS: Ketorolac 30 MG/ML SDV IVPUSH SCH ×2 (17:00→22:48)
[2020-12-05] MEDS: Docusate Sodium 100 MG Cap PO PRN (04:34)
[2020-12-05] MEDS: Acetaminophen/oxyCODONE 325-5 MG Tab PO PRN ×4 (04:34→22:11)
[2020-12-05] MEDS: Ketorolac 30 MG/ML SDV IVPUSH SCH (04:34)
--- NOTE | 2020-12-05 07:23 | PCM.PNPP ---
- General Info Date of Service: 12/05/20 Functional Status: Reports: Pain Controlled, Tolerating Diet, Ambulating, Urinating - Review of Systems General: Reports: No Symptoms Pulmonary: Reports: No Symptoms Cardiovascular: Reports: No Symptoms Gastrointestinal: Reports: Abdominal Pain (managed with medications ) Genitourinary: Reports: No Symptoms Musculoskeletal: Reports: No Symptoms Neurological: Reports: No Symptoms - Patient Data Vital Signs - Most Recent: Last Vital Signs Temp 36.9 C 12/05/20 04:41 Pulse 65 12/05/20 04:43 Resp 16 12/05/20 04:41 BP 114/80 12/05/20 04:43 Pulse Ox 100 12/05/20 04:43 Weight - Most Recent: 141.702 kg I&O - Last 24 Hours: Intake & Output 12/04/20 12/05/20 12/05/20 22:59 06:59 14:59 Intake Total 240 Output Total 236 155 Balance 4 -155 Lab Results - Last 24 Hours: Laboratory Results - last 24 hr 12/04/20 12/04/20 12/04/20 Range/Units 07:34 07:34 07:34 WBC 8.67 (3.98-10.04) K/mm3 RBC 4.56 (3.98-5.22) M/mm3 Hgb 11.6 D (11.2-15.7) gm/dl Hct 35.9 (34.1-44.9) % MCV 78.7 L D (79.4-94.8) fl MCH 25.4 L (25.6-32.2) pg MCHC 32.3 (32.2-35.5) g/dl RDW Std Deviation 37.6 (36.4-46.3) fL Plt Count 314 (182-369) K/mm3 MPV 11.1 (9.4-12.3) fl Neut % (Auto) 61.2 (34.0-71.1) % Lymph % (Auto) 29.6 (19.3-51.7) % [place] % (Auto) 7.7 (4.7-12.5) % Eos % (Auto) 1.0 (0.7-5.8) Baso % (Auto) 0.3 (0.1-1.2) % Neut # (Auto) 5.29 (1.56-6.13) K/mm3 Lymph # (Auto) 2.57 (1.18-3.74) K/mm3 [place] # (Auto) 0.67 H (0.24-0.36) K/mm3 Eos # (Auto) 0.09 (0.04-0.36) K/mm3 Baso # (Auto) 0.03 (0.01-0.08) K/mm3 RPR Non-reactive (NONREACTIVE) SARS-CoV-2 RNA ([place]) (NEGATIVE) Blood Type A POSITIVE Gel Antibody Screen Negative 12/04/20 12/05/20 Range/Units 07:45 05:57 WBC 7.66 (3.98-10.04) K/mm3 RBC 3.31 L (3.98-5.22) M/mm3 Hgb 8.4 L D (11.2-15.7) gm/dl Hct 26.7 L (34.1-44.9) % MCV 80.7 (79.4-94.8) fl MCH 25.4 L (25.6-32.2) pg MCHC 31.5 L (32.2-35.5) g/dl RDW Std Deviation 37.4 (36.4-46.3) fL Plt Count 242 (182-369) K/mm3 MPV 11.4 (9.4-12.3) fl Neut % (Auto) (34.0-71.1) % Lymph % (Auto) (19.3-51.7) % [place] % (Auto) (4.7-12.5) % Eos % (Auto) (0.7-5.8) Baso % (Auto) (0.1-1.2) % Neut # (Auto) (1.56-6.13) K/mm3 Lymph # (Auto) (1.18-3.74) K/mm3 [place] # (Auto) (0.24-0.36) K/mm3 Eos # (Auto) (0.04-0.36) K/mm3 Baso # (Auto) (0.01-0.08) K/mm3 RPR (NONREACTIVE) SARS-CoV-2 RNA ([place]) Negative (NEGATIVE) Blood Type Gel Antibody Screen Med Orders - Current: Current Medications Diphenhydramine HCl (Diphenhydramine 50 Mg/Ml Sdv) 25 mg IVPUSH Q6H PRN PRN Reason: Pruritis Diphenhydramine HCl (Diphenhydramine 50 Mg/Ml Sdv) 25 mg IVPUSH Q6H PRN PRN Reason: Itching or Nausea Docusate Sodium (Docusate Sodium 100 Mg Cap) 100 mg PO Q12H PRN PRN Reason: Constipation Last Admin: 12/05/20 04:34 Dose: 100 mg Documented by: Ephedrine Sulfate (Ephedrine 50 Mg/Ml Sdv) 5 mg IVPUSH SEECOMMENT PRN PRN Reason: Other Fentanyl (Fentanyl 100 Mcg/2 Ml Sdv) 50 mcg IVPUSH Q5M PRN PRN Reason: Pain Ibuprofen (Ibuprofen 600 Mg Tab) 600 mg PO Q6H PRN PRN Reason: mild pain or fever Naloxone HCl (Naloxone 0.4 Mg/Ml Sdv) 0.1 mg IVPUSH SEECOMMENT PRN PRN Reason: Respiratory Depression Ondansetron HCl (Ondansetron 4 Mg/2 Ml Sdv) 4 mg IVPUSH ONETIME PRN PRN Reason: Nausea/Vomiting Ondansetron HCl (Ondansetron 4 Mg/2 Ml Sdv) 4 mg IV Q8H PRN PRN Reason: Nausea/Vomiting Oxycodone/Acetaminophen (Acetaminophen/Oxycodone 325-5 Mg Tab) 1 tab PO Q4H PRN PRN Reason: Pain (moderate 4-6) Last Admin: 12/05/20 04:34 Dose: 1 tab Documented by: Oxycodone/Acetaminophen (Acetaminophen/Oxycodone 325-5 Mg Tab) 2 tab PO Q4H PRN PRN Reason: Pain (severe 7-10) Discontinued Medications Cefazolin Sodium (Cefazolin 1 Gm Vial) Confirm Administered Dose 2 gm .ROUTE .STK-MED ONE Stop: 12/04/20 08:23 Citalopram Hydrobromide (Citalopram 20 Mg Tab) 40 mg PO DAILY [facility] Citric Acid/Sodium Citrate (Citric Acid/Sodium Citrate Solution 30 Ml Cup) 30 ml PO ONETIME ONE Stop: 12/04/20 09:01 Last Admin: 12/04/20 09:16 Dose: 30 ml Documented by: Lactated Ringer's (Ringers, Lactated) 1,000 mls @ 125 mls/hr IV ASDIRECTED [facility] Cefazolin Sodium/Dextrose 1 gm (/ Premix) 50 mls @ 100 mls/hr IV ONETIME ONE Stop: 12/04/20 10:14 Cefazolin Sodium/Dextrose 2 gm (/ Premix) 50 mls @ 100 mls/hr IV ONETIME ONE Stop: 12/04/20 10:14 Oxytocin/Lactated Ringer's (Pitocin In Lr 10 Units/1,000 Ml) 10 unit in 1,000 mls @ 100 mls/hr IV ASDIRECTED [facility] Lactated Ringer's (Ringers, Lactated) Confirm Administered Dose 2,000 mls @ as directed .ROUTE .STK-MED ONE Stop: 12/04/20 08:23 Dextrose/Lactated Ringer's (Dextrose 5%-Lactated Ringers) 1,000 mls @ 125 mls/hr IV ASDIRECTED [facility] Stop: 12/04/20 20:17 Ketorolac Tromethamine (Ketorolac 30 Mg/Ml Sdv) Confirm Administered Dose 30 mg .ROUTE .STK-MED ONE Stop: 12/04/20 08:23 Ketorolac Tromethamine (Ketorolac 30 Mg/Ml Sdv) 30 mg IVPUSH Q6H [facility] Stop: 12/05/20 04:31 Last Admin: 12/05/20 04:34 Dose: 30 mg Documented by: Metoclopramide HCl (Metoclopramide 10 Mg/2 Ml Sdv) 10 mg IVPUSH ONETIME ONE Stop: 12/04/20 09:01 Last Admin: 12/04/20 09:16 Dose: 10 mg Documented by: Miscellaneous Medication (Phenylephrine Hcl In 0.9% Nacl 1 Mg/10 Ml Syringe) Confirm Administered Dose 1 mg .ROUTE .STK-MED ONE Stop: 12/04/20 09:43 Morphine Sulfate (Morphine Pf 10 Mg/10 Ml Sdv) Confirm Administered Dose 10 mg .ROUTE .STK-MED ONE Stop: 12/04/20 08:24 Ondansetron HCl (Ondansetron 4 Mg/2 Ml Sdv) Confirm Administered Dose 4 mg .ROUTE .STK-MED ONE Stop: 12/04/20 08:23 Oxytocin (Oxytocin 10 Units/1 Ml Sdv) Confirm Administered Dose 20 unit .ROUTE .STK-MED ONE Stop: 12/04/20 08:23 Sodium Chloride (Sodium Chloride 0.9% 10 Ml Syringe) 10 ml FLUSH ASDIRECTED PRN PRN Reason: Keep Vein Open - Infant Interaction Infant Disposition, : in Room with Family Interaction: Holding Infant Feeding: Attempted ; Nursed Fair/Poor, Bottle Fed Infant Support Person: - Recovery Exam Fundal Tone: Firm Fundal Level: 2 Fingerbreadths Below Umbilicus Fundal Placement: Midline Lochia Amount: Small Lochia Color: Rubra/Red Perineum Description: Intact, Minimal Bruising/Swelling - Exam General: Alert, Oriented, Cooperative Lungs: Clear to Auscultation, Normal Respiratory Effort Cardiovascular: Regular Rate, Regular Rhythm GI/Abdominal Exam: Soft, Tender (appropriate ) Skin: Warm, Dry, Intact Wound/Incisions: Healing Well, No Drainage - Problem List & Annotations (1) BMI 50.0-59.9, adult SNOMED Code(s): 027893761, 247961270 Code(s): Z68.43 - BODY MASS INDEX [BMI] 50.0-59.9, ADULT Status: Acute Current Visit: Yes (2) Status post repeat low transverse section SNOMED Code(s): 900308836, 97450101, 012924005, 620126840, [id number] Code(s): Z98.891 - HISTORY OF UTERINE SCAR FROM PREVIOUS SURGERY Status: Acute Current Visit: Yes - Problem List Review Problem List Initiated/Reviewed/Updated: Yes - My Orders Last 24 Hours: My Active Orders 12/04/20 07:34 HEP C VIRUS AB [REF] Stat 12/04/20 Lunch Regular Diet [DIET] Regular Diet [DIET] 12/04/20 12:18 Acetaminophen/oxyCODONE [Percocet 325-5 MG] 1 tab PO Q4H PRN Acetaminophen/oxyCODONE [Percocet 325-5 MG] 2 tab PO Q4H PRN Docusate Sodium [Colace] 100 mg PO Q12H PRN Naloxone [Narcan] 0.1 mg IVPUSH SEECOMMENT PRN Ondansetron [Zofran] 4 mg IV Q8H PRN diphenhydrAMINE [Benadryl] 25 mg IVPUSH Q6H PRN ePHEDrine [ePHEDrine sulfate] 5 mg IVPUSH SEECOMMENT PRN 12/04/20 12:18 Antiembolic Devices [RC] PER UNIT ROUTINE Communication Order [RC] PER UNIT ROUTINE Intake and Output [RC] Q4H May Shower [RC] PER UNIT ROUTINE Notify Provider Intake and Out [RC] ASDIRECTED RT Incentive Spirometry [RC] Q2HWA Assess Lochia [WOMSER] Per Unit Routine Assess Uterine Involution [WOMSER] Per Unit Routine Breast Pump [WOMSER] Per Unit Routine Heat Therapy [OM.PC] Per Unit Routine Peripheral IV Discontinue [OM.PC] Routine Sequential Compression Device [OM.PC] Per Unit Routine 12/05/20 10:30 Ibuprofen [Motrin] 600 mg PO Q6H PRN - Assessment Assessment:: PPD#0 - Plan Plan:: * Routine cares * Breast feeding with supplementation * Hb with as expected drop today. Continue PNV/iron supplement on discharge * Discharge home in 1-2 days
--- NOTE | 2020-12-05 08:37 | PCM48HPAN ---
Post Anesthesia Note - EVALUATION WITHIN 48HRS OF ANESTHETIC Vital Signs in Normal Range: Yes Patient Participated in Evaluation: Yes Respiratory Function Stable: Yes Airway Patent: Yes Cardiovascular Function Stable: Yes Hydration Status Stable: Yes Pain Control Satisfactory: Yes Nausea and Vomiting Control Satisfactory: Yes Mental Status Recovered: Yes Vital Signs: Last Vital Signs Temp 36.3 C 12/05/20 08:26 Pulse 76 12/05/20 08:26 Resp 16 12/05/20 08:26 BP 113/51 L 12/05/20 08:26 Pulse Ox 100 12/05/20 08:26 - COMMENTS/OBSERVATIONS Free Text/Narrative:: Mariposa is sitting up in bed with no questions/concerns at this time.
[2020-12-05] MEDS ORDERED: Citalopram 20 MG Tab PO SCH (09:00)
[2020-12-05] MEDS: Ibuprofen 600 MG Tab PO PRN ×2 (13:31→20:09)
[2020-12-06] MEDS: Ibuprofen 600 MG Tab PO PRN (02:15)
[2020-12-06] MEDS: Docusate Sodium 100 MG Cap PO PRN (02:16)
[2020-12-06] MEDS: Acetaminophen/oxyCODONE 325-5 MG Tab PO PRN ×2 (04:07→09:25)
--- NOTE | 2020-12-06 06:09 | PCM.DCSUM1 ---
Discharge Summary - Hospital Course Free Text/Narrative:: 35 yo multip. admitted for rept CS. Diagnosis: Stroke: No - Discharge Data Discharge Date: 12/06/20 Discharge Disposition: Home, Self-Care 01 Condition: Good - Referral to Home Health Primary Care Physician: Catalina Nobles MD - Patient Summary/Data Operative Procedure(s) Performed: Repeat low transverse - Patient Instructions Diet: Regular Diet as Tolerated (Nursing diet with increased calories and calcium as recommended) Activity: As Tolerated (No intercourse or tampons until bleeding resolves. No lifting greater than 15 pounds or driving a car x1 week.) Driving: Do Not Drive Showering/Bathing: May Shower Wound/Incision Care: Keep Operative Site/Wound Site Clean and Dry Notify Provider of: Fever, Increased Pain, Swelling and Redness, Nausea and/or Vomiting - Discharge Plan Home Medications: Home Meds No122/Iron/Folic Acid [ Multi Tablet] 1 each PO DAILY 05/21/19 [History] Albuterol Sulfate [Albuterol Sulfate HFA] 12/04/20 [History] Citalopram Hydrobromide [Celexa] 40 mg PO DAILY 12/04/20 [History] Cyclobenzaprine [Flexeril] 5 mg PO PRN 12/04/20 [History] Acetaminophen/oxyCODONE [Percocet 325-5 MG] 2 tab PO Q4H PRN tablet 12/06/20 [Rx] Ibuprofen [Motrin] 600 mg PO Q6H PRN tablet 12/06/20 [Rx] Patient Handouts: Care After Delivery Referrals: Catalina Nobles MD [Primary Care Provider] - (Patient is to call [facility] for follow-up appointment.) - Discharge Summary/Plan Comment DC Time >30 min.: No Discharge Summary/Plan Comment: Discharge instructions: 1. Discharge home 2. Diet, activity and follow-up discussed with patient. Recommend nursing diet with increased calories and calcium. 3. Precautions given concern increased pain, bleeding, temperature, signs/symptoms of DVT/PE. 4. Medications per home medication was printed, discussed with and given to the patient. [facility] Diagnosis: Term -delivered Condition: Good - Patient Data Vitals - Most Recent: Last Vital Signs Temp 37.1 C 12/06/20 02:19 Pulse 78 12/06/20 02:19 Resp 16 12/06/20 02:19 BP 113/54 L 12/06/20 02:19 Pulse Ox 98 12/06/20 02:19 Weight - Most Recent: 141.702 kg I&O - Last 24 hours: Intake & Output 12/05/20 12/05/20 12/06/20 14:59 22:59 06:59 Intake Total 600 Output Total 1000 320 Balance -400 -320 Lab Results - Last 24 hrs: Laboratory Results - last 24 hr 12/05/20 Range/Units 05:57 WBC 7.66 (3.98-10.04) K/mm3 RBC 3.31 L (3.98-5.22) M/mm3 Hgb 8.4 L D (11.2-15.7) gm/dl Hct 26.7 L (34.1-44.9) % MCV 80.7 (79.4-94.8) fl MCH 25.4 L (25.6-32.2) pg MCHC 31.5 L (32.2-35.5) g/dl RDW Std Deviation 37.4 (36.4-46.3) fL Plt Count 242 (182-369) K/mm3 MPV 11.4 (9.4-12.3) fl Med Orders - Current: Current Medications Diphenhydramine HCl (Diphenhydramine 50 Mg/Ml Sdv) 25 mg IVPUSH Q6H PRN PRN Reason: Pruritis Diphenhydramine HCl (Diphenhydramine 50 Mg/Ml Sdv) 25 mg IVPUSH Q6H PRN PRN Reason: Itching or Nausea Docusate Sodium (Docusate Sodium 100 Mg Cap) 100 mg PO Q12H PRN PRN Reason: Constipation Last Admin: 12/06/20 02:16 Dose: 100 mg Documented by: Ephedrine Sulfate (Ephedrine 50 Mg/Ml Sdv) 5 mg IVPUSH SEECOMMENT PRN PRN Reason: Other Fentanyl (Fentanyl 100 Mcg/2 Ml Sdv) 50 mcg IVPUSH Q5M PRN PRN Reason: Pain Ibuprofen (Ibuprofen 600 Mg Tab) 600 mg PO Q6H PRN PRN Reason: mild pain or fever Last Admin: 12/06/20 02:15 Dose: 600 mg Documented by: Naloxone HCl (Naloxone 0.4 Mg/Ml Sdv) 0.1 mg IVPUSH SEECOMMENT PRN PRN Reason: Respiratory Depression Ondansetron HCl (Ondansetron 4 Mg/2 Ml Sdv) 4 mg IVPUSH ONETIME PRN PRN Reason: Nausea/Vomiting Ondansetron HCl (Ondansetron 4 Mg/2 Ml Sdv) 4 mg IV Q8H PRN PRN Reason: Nausea/Vomiting Oxycodone/Acetaminophen (Acetaminophen/Oxycodone 325-5 Mg Tab) 1 tab PO Q4H PRN PRN Reason: Pain (moderate 4-6) Last Admin: 12/06/20 04:07 Dose: 1 tab Documented by: Oxycodone/Acetaminophen (Acetaminophen/Oxycodone 325-5 Mg Tab) 2 tab PO Q4H PRN PRN Reason: Pain (severe 7-10) Discontinued Medications Cefazolin Sodium (Cefazolin 1 Gm Vial) Confirm Administered Dose 2 gm .ROUTE .STK-MED ONE Stop: 12/04/20 08:23 Cefazolin Sodium (Cefazolin 1 Gm Vial) 1 gm .ROUTE .STK-MED ONE Stop: 12/04/20 08:23 Citalopram Hydrobromide (Citalopram 20 Mg Tab) 40 mg PO DAILY [facility] Citric Acid/Sodium Citrate (Citric Acid/Sodium Citrate Solution 30 Ml Cup) 30 ml PO ONETIME ONE Stop: 12/04/20 09:01 Last Admin: 12/04/20 09:16 Dose: 30 ml Documented by: Lactated Ringer's (Ringers, Lactated) 1,000 mls @ 125 mls/hr IV ASDIRECTED [facility] Cefazolin Sodium/Dextrose 1 gm (/ Premix) 50 mls @ 100 mls/hr IV ONETIME ONE Stop: 12/04/20 10:14 Last Admin: 12/05/20 22:05 Dose: Not Given Documented by: Cefazolin Sodium/Dextrose 2 gm (/ Premix) 50 mls @ 100 mls/hr IV ONETIME ONE Stop: 12/04/20 10:14 Last Admin: 12/05/20 22:06 Dose: Not Given Documented by: Oxytocin/Lactated Ringer's (Pitocin In Lr 10 Units/1,000 Ml) 10 unit in 1,000 mls @ 100 mls/hr IV ASDIRECTED [facility] Lactated Ringer's (Ringers, Lactated) Confirm Administered Dose 2,000 mls @ as directed .ROUTE .STK-MED ONE Stop: 12/04/20 08:23 Dextrose/Lactated Ringer's (Dextrose 5%-Lactated Ringers) 1,000 mls @ 125 mls/hr IV ASDIRECTED [facility] Stop: 12/04/20 20:17 Ketorolac Tromethamine (Ketorolac 30 Mg/Ml Sdv) Confirm Administered Dose 30 mg .ROUTE .STK-MED ONE Stop: 12/04/20 08:23 Ketorolac Tromethamine (Ketorolac 30 Mg/Ml Sdv) 30 mg IVPUSH Q6H [facility] Stop: 12/05/20 04:31 Last Admin: 12/05/20 04:34 Dose: 30 mg Documented by: Metoclopramide HCl (Metoclopramide 10 Mg/2 Ml Sdv) 10 mg IVPUSH ONETIME ONE Stop: 12/04/20 09:01 Last Admin: 12/04/20 09:16 Dose: 10 mg Documented by: Miscellaneous Medication (Phenylephrine Hcl In 0.9% Nacl 1 Mg/10 Ml Syringe) Confirm Administered Dose 1 mg .ROUTE .ST-MED ONE Stop: 12/04/20 09:43 Morphine Sulfate (Morphine Pf 10 Mg/10 Ml Sdv) Confirm Administered Dose 10 mg .ROUTE .STK-MED ONE Stop: 12/04/20 08:24 Ondansetron HCl (Ondansetron 4 Mg/2 Ml Sdv) Confirm Administered Dose 4 mg .ROUTE .STK-MED ONE Stop: 12/04/20 08:23 Oxytocin (Oxytocin 10 Units/1 Ml Sdv) Confirm Administered Dose 20 unit .ROUTE .STK-MED ONE Stop: 12/04/20 08:23 Sodium Chloride (Sodium Chloride 0.9% 10 Ml Syringe) 10 ml FLUSH ASDIRECTED PRN PRN Reason: Keep Vein Open
--- NOTE | 2020-12-06 06:16 | PCM.DCSUM1 ---
Discharge Summary - Hospital Course Free Text/Narrative:: Mariposa is a 35-year-old multigravida female who was admitted on 12/04/2020 for elective repeat section. Please see admission history and physical for details concerning H&P. Patient underwent repeat lower uterine segment transverse section. She had moderate scar tissue between the rectus and the fascia. A lot of filmy adhesions were noted between the omentum, peritoneum and uterus. She delivered a viable, jimenez, female infant in a vertex presentation. The baby had a weight of 8 pounds 8 ounces and Apgars of 8 and 8. Preoperative diagnosis was 39-1/7-week intrauterine , history of previous section with desire for repeat section and a BMI of greater than 50. Please see operative report for details. Postoperatively patient has done well. Pain was treated with Duramorph through spinal block. She had ibuprofen and Percocet for postoperative pain relief also. Vital signs remained stable throughout the .. Her hemoglobin dropped to 8+ but she is doing well with this clinically and no blood products were transfused. She is desiring discharge home. Diagnosis: Stroke: No - Discharge Data Discharge Date: 12/06/20 Discharge Disposition: Home, Self-Care 01 Condition: Good - Referral to Home Health Primary Care Physician: Catalina Nobles MD - Patient Summary/Data Operative Procedure(s) Performed: Repeat low transverse - Patient Instructions Diet: Regular Diet as Tolerated Activity: As Tolerated (No intercourse or tampons until bleeding resolves. No lifting greater than 15 pounds or driving a car x1 week.) Driving: Do Not Drive Showering/Bathing: May Shower Wound/Incision Care: Keep Operative Site/Wound Site Clean and Dry Notify Provider of: Fever, Increased Pain, Swelling and Redness, Nausea and/or Vomiting - Discharge Plan Home Medications: Home Meds No122/Iron/Folic Acid [ Multi Tablet] 1 each PO DAILY 05/21/19 [History] Albuterol Sulfate [Albuterol Sulfate HFA] 12/04/20 [History] Citalopram Hydrobromide [Celexa] 40 mg PO DAILY 12/04/20 [History] Cyclobenzaprine [Flexeril] 5 mg PO PRN 12/04/20 [History] Acetaminophen/oxyCODONE [Percocet 325-5 MG] 2 tab PO Q4H PRN tablet 12/06/20 [Rx] Ibuprofen [Motrin] 600 mg PO Q6H PRN tablet 12/06/20 [Rx] Referrals: Catalina Nobles MD [Primary Care Provider] - (Patient is to call [facility] for follow-up appointment.) - Discharge Summary/Plan Comment DC Time >30 min.: No Discharge Summary/Plan Comment: Discharge instructions: 1. Discharge home 2. Diet, activity and follow-up discussed with patient. Recommend nursing diet with increased calories and calcium. 3. Precautions given concern increased pain, bleeding, temperature, signs/symptoms of DVT/PE. 4. Medications per home medication was printed, discussed with and given to the patient. 5. Return to clinic-Dr. Nobles at [facility] in 2 weeks. Diagnosis: 1. Term [id number]/7 weeks gestational agedelivered by repeat 2. History of previous section with desire for repeat section 3. Obesity with BMI greater than 50. Condition: Good - Patient Data Vitals - Most Recent: Last Vital Signs Temp 37.1 C 12/06/20 02:19 Pulse 78 12/06/20 02:19 Resp 16 12/06/20 02:19 BP 113/54 L 12/06/20 02:19 Pulse Ox 98 12/06/20 02:19 Weight - Most Recent: 141.702 kg I&O - Last 24 hours: Intake & Output 12/05/20 12/05/20 12/06/20 14:59 22:59 06:59 Intake Total 600 Output Total 1000 320 Balance -400 -320 Lab Results - Last 24 hrs: Laboratory Results - last 24 hr 12/05/20 Range/Units 05:57 WBC 7.66 (3.98-10.04) K/mm3 RBC 3.31 L (3.98-5.22) M/mm3 Hgb 8.4 L D (11.2-15.7) gm/dl Hct 26.7 L (34.1-44.9) % MCV 80.7 (79.4-94.8) fl MCH 25.4 L (25.6-32.2) pg MCHC 31.5 L (32.2-35.5) g/dl RDW Std Deviation 37.4 (36.4-46.3) fL Plt Count 242 (182-369) K/mm3 MPV 11.4 (9.4-12.3) fl Med Orders - Current: Current Medications Diphenhydramine HCl (Diphenhydramine 50 Mg/Ml Sdv) 25 mg IVPUSH Q6H PRN PRN Reason: Pruritis Diphenhydramine HCl (Diphenhydramine 50 Mg/Ml Sdv) 25 mg IVPUSH Q6H PRN PRN Reason: Itching or Nausea Docusate Sodium (Docusate Sodium 100 Mg Cap) 100 mg PO Q12H PRN PRN Reason: Constipation Last Admin: 12/06/20 02:16 Dose: 100 mg Documented by: Ephedrine Sulfate (Ephedrine 50 Mg/Ml Sdv) 5 mg IVPUSH SEECOMMENT PRN PRN Reason: Other Fentanyl (Fentanyl 100 Mcg/2 Ml Sdv) 50 mcg IVPUSH Q5M PRN PRN Reason: Pain Ibuprofen (Ibuprofen 600 Mg Tab) 600 mg PO Q6H PRN PRN Reason: mild pain or fever Last Admin: 12/06/20 02:15 Dose: 600 mg Documented by: Naloxone HCl (Naloxone 0.4 Mg/Ml Sdv) 0.1 mg IVPUSH SEECOMMENT PRN PRN Reason: Respiratory Depression Ondansetron HCl (Ondansetron 4 Mg/2 Ml Sdv) 4 mg IVPUSH ONETIME PRN PRN Reason: Nausea/Vomiting Ondansetron HCl (Ondansetron 4 Mg/2 Ml Sdv) 4 mg IV Q8H PRN PRN Reason: Nausea/Vomiting Oxycodone/Acetaminophen (Acetaminophen/Oxycodone 325-5 Mg Tab) 1 tab PO Q4H PRN PRN Reason: Pain (moderate 4-6) Last Admin: 12/06/20 04:07 Dose: 1 tab Documented by: Oxycodone/Acetaminophen (Acetaminophen/Oxycodone 325-5 Mg Tab) 2 tab PO Q4H PRN PRN Reason: Pain (severe 7-10) Discontinued Medications Cefazolin Sodium (Cefazolin 1 Gm Vial) Confirm Administered Dose 2 gm .ROUTE .STK-MED ONE Stop: 12/04/20 08:23 Cefazolin Sodium (Cefazolin 1 Gm Vial) 1 gm .ROUTE .STK-MED ONE Stop: 12/04/20 08:23 Citalopram Hydrobromide (Citalopram 20 Mg Tab) 40 mg PO DAILY [facility] Citric Acid/Sodium Citrate (Citric Acid/Sodium Citrate Solution 30 Ml Cup) 30 ml PO ONETIME ONE Stop: 12/04/20 09:01 Last Admin: 12/04/20 09:16 Dose: 30 ml Documented by: Lactated Ringer's (Ringers, Lactated) 1,000 mls @ 125 mls/hr IV ASDIRECTED [facility] Cefazolin Sodium/Dextrose 1 gm (/ Premix) 50 mls @ 100 mls/hr IV ONETIME ONE Stop: 12/04/20 10:14 Last Admin: 12/05/20 22:05 Dose: Not Given Documented by: Cefazolin Sodium/Dextrose 2 gm (/ Premix) 50 mls @ 100 mls/hr IV ONETIME ONE Stop: 12/04/20 10:14 Last Admin: 12/05/20 22:06 Dose: Not Given Documented by: Oxytocin/Lactated Ringer's (Pitocin In Lr 10 Units/1,000 Ml) 10 unit in 1,000 mls @ 100 mls/hr IV ASDIRECTED [facility] Lactated Ringer's (Ringers, Lactated) Confirm Administered Dose 2,000 mls @ as directed .ROUTE .STK-MED ONE Stop: 12/04/20 08:23 Dextrose/Lactated Ringer's (Dextrose 5%-Lactated Ringers) 1,000 mls @ 125 mls/hr IV ASDIRECTED [facility] Stop: 12/04/20 20:17 Ketorolac Tromethamine (Ketorolac 30 Mg/Ml Sdv) Confirm Administered Dose 30 mg .ROUTE .STK-MED ONE Stop: 12/04/20 08:23 Ketorolac Tromethamine (Ketorolac 30 Mg/Ml Sdv) 30 mg IVPUSH Q6H [facility] Stop: 12/05/20 04:31 Last Admin: 12/05/20 04:34 Dose: 30 mg Documented by: Metoclopramide HCl (Metoclopramide 10 Mg/2 Ml Sdv) 10 mg IVPUSH ONETIME ONE Stop: 12/04/20 09:01 Last Admin: 12/04/20 09:16 Dose: 10 mg Documented by: Miscellaneous Medication (Phenylephrine Hcl In 0.9% Nacl 1 Mg/10 Ml Syringe) Confirm Administered Dose 1 mg .ROUTE .STK-MED ONE Stop: 12/04/20 09:43 Morphine Sulfate (Morphine Pf 10 Mg/10 Ml Sdv) Confirm Administered Dose 10 mg .ROUTE .STK-MED ONE Stop: 12/04/20 08:24 Ondansetron HCl (Ondansetron 4 Mg/2 Ml Sdv) Confirm Administered Dose 4 mg .ROUTE .STK-MED ONE Stop: 12/04/20 08:23 Oxytocin (Oxytocin 10 Units/1 Ml Sdv) Confirm Administered Dose 20 unit .ROUTE .STK-MED ONE Stop: 12/04/20 08:23 Sodium Chloride (Sodium Chloride 0.9% 10 Ml Syringe) 10 ml FLUSH ASDIRECTED PRN PRN Reason: Keep Vein Open
== END 2020-12-06 10:40 | disposition home or self-care (01) | DRG 788 ==
LOC: JD.OB 07:00 → INTOOBSV 07:15 → UNDOADMOB 07:15 → JD.OB 07:15 → OBSVTOIN 07:15 → JD.OB 13:57
PROVIDERS: ADMIT Obstetrics & Gynecology; ATTEND Obstetrics & Gynecology
PROC: 10D00Z1 Extraction of Products of Conception, Low, Open Approach (ICD-10-PCS; principal; 2020-12-04)
DX: O34.211 Maternal care for low transverse scar from previous cesarean delivery (principal); Z3A.39 39 weeks gestation of pregnancy; Z37.0 Single live birth; O99.214 Obesity complicating childbirth; E66.9 Obesity, unspecified; Z20.822 Contact with and (suspected) exposure to COVID-19
CPT/HCPCS: 01961; 36415; 59025; 85025; 85027; 86592; 86803; 86850; 86900; 86901; 94762; A9270-GY; J0690; J1885; J2270; J2370; J2405; J2590; J2765; J7120; U0002

== ENCOUNTER 2021-07-22 17:52 | Emergency (ER) | payer OTHER ==
[2021-07-22] MEDS ORDERED: HYDROmorphone 1 MG/ML Syringe IVPUSH STA (18:40)
[2021-07-22] MEDS ORDERED: Sodium Chloride 0.9% 10 ML Syringe FLUSH PRN (18:40)
[2021-07-22] MEDS ORDERED: Ondansetron 4 MG/2 ML SDV IVPUSH ONE (18:40)
[2021-07-22] MEDS ORDERED: Sodium Chloride 0.9% 1,000 ML IV SCH (18:45)
--- NOTE | 2021-07-22 18:46 | EDM.PDOC ---
ED HPI GENERAL MEDICAL PROBLEM - General Chief Complaint: Abdominal Pain Stated Complaint: ABDOMINAL PAIN Time Seen by Provider: 07/22/21 18:32 Source of Information: Reports: Patient, RN Notes Reviewed History Limitations: Reports: No Limitations - History of Present Illness INITIAL COMMENTS - FREE TEXT/NARRATIVE: Patient is a 35-year-old female who presents to the ER for her right upper quadrant abdominal pain. Patient states that she drank fairly hard over the weekend due to it being [place] holiday. Patient has a history of GERD, so she thought she had heartburn on Tuesday so she was trying Tums, Pepcid and omeprazole and Mylanta for ongoing management. Patient states that it just has not really gotten much better over the next few days. States that this morning, she has never really eaten much. She is complaining of nausea and vomiting that started at 3 PM. She is indicating that she is having sharp abdominal pain in her right upper quadrant that has been present pretty much all day. She had 1 chicken nugget and a handful of cheez-its at around noon today and that is about it for food. Patient did try to use some Tylenol for the pain but states that this did not help. Patient states that she is not had any fevers or chills or any cough or shortness of breath. She has had nausea and vomiting but no diarrhea. States that she still retains her gallbladder. Right Upper Abdomen Pain Score (Numeric/FACES): 10 - Related Data Allergies Allergy/AdvReac Type Severity Reaction Status Date / Time No Known Allergies Allergy Verified 07/22/21 18:21 Home Meds: Home Meds Albuterol Sulfate [Albuterol Sulfate HFA] 1 puff INH Q4H PRN 12/04/20 [History] Citalopram Hydrobromide [Celexa] 40 mg PO DAILY 12/04/20 [History] Doxylamine Succinate [Unisom] 12.5 mg PO BEDTIME 07/22/21 [History] norgestimate-ethinyl estradioL [Ortho Tri-Cyclen 28 Tablet] 1 tab PO DAILY 07/22/21 [History] Past Medical History HEENT History: Reports: Impaired Vision, Other (See Below) Other HEENT History: wears glasses Respiratory History: Reports: Asthma Gastrointestinal History: Reports: [employer] History: Reports: Psychiatric History: Reports: Anxiety, Depression Endocrine/Metabolic History: Reports: Obesity/BMI 30+ Oncologic (Cancer) History: Reports: None - Infectious Disease History Infectious Disease History: Reports: Novel Coronavirus - Past Surgical History HEENT Surgical History: Reports: Adenoidectomy, Tonsillectomy Female Surgical History: Reports: Section Social & Family History - Family History Family Medical History: No Pertinent Family History - Tobacco Use Tobacco Use Status *Q: Never Tobacco User - Caffeine Use Caffeine Use: Reports: Coffee - Recreational Drug Use Recreational Drug Use: No ED ROS GENERAL - Review of Systems Review Of Systems: Comprehensive ROS is negative, except as noted in HPI. ED EXAM, GI/ABD - Physical Exam Exam: See Below Exam Limited By: No Limitations General Appearance: Alert, WD/WN, No Apparent Distress (pt appears to be in moderate amount of pain; but in no active distress) Respiratory/Chest: No Respiratory Distress, Lungs Clear, Normal Breath Sounds, No Accessory Muscle Use, Chest Non-Tender Cardiovascular: Normal Peripheral Pulses, Regular Rate, Rhythm, No Edema GI/Abdominal Exam: Normal Bowel Sounds, Soft, No Distention, No Mass, Tender (RUQ tenderness, Torres sign positive) Extremities: Normal Inspection, Normal Capillary Refill Neurological: Alert, Oriented, Normal Cognition, No Motor/Sensory Deficits Psychiatric: Normal Affect, Normal Mood Skin Exam: Warm, Dry, Intact, Normal Color, No Rash Course - Vital Signs Last Recorded V/S: Last Vital Signs Temp 98.7 F 07/22/21 18:18 Pulse 69 07/22/21 18:18 Resp 24 H 07/22/21 18:18 BP 144/116 H 07/22/21 18:18 Pulse Ox 100 07/22/21 18:18 - Orders/Labs/Meds Orders: Active Orders 24 hr Category Date Time Status Peripheral IV Care [RC] . DIRECTED Care 07/22/21 18:40 Ordered Abdomen Pelvis w Cont [CT] Stat Exams 07/22/21 18:40 Ordered Ampicillin/Sulbactam Na [Unasyn] 3 gm Med 07/22/21 22:03 Ordered Sodium Chloride 0.9% [Normal Saline AdvBag] 100 ml IV ONETIME Sodium Chloride 0.9% [Normal Saline] 1,000 ml Med 07/22/21 18:45 Ordered IV ASDIRECTED Sodium Chloride 0.9% [Saline Flush] Med 07/22/21 18:40 Ordered 10 ml FLUSH ASDIRECTED PRN Peripheral IV Insertion Adult [OM.PC] Stat Oth 07/22/21 18:40 Ordered Medication Orders Sodium Chloride (Normal Saline) 1,000 mls @ 999 mls/hr IV ASDIRECTED BALWINDER Last Admin: 07/22/21 18:58 Dose: 999 mls/hr Documented by: MARGE Ampicillin Sodium/Sulbactam (Sodium 3 gm/ Sodium Chloride) 100 mls @ 200 mls/hr IV ONETIME ONE Stop: 07/22/21 22:32 Sodium Chloride (Sodium Chloride 0.9% 10 Ml Syringe) 10 ml FLUSH ASDIRECTED PRN PRN Reason: Keep Vein Open Last Admin: 07/22/21 18:58 Dose: 10 ml Documented by: MARGE Labs: Laboratory Tests 07/22/21 07/22/21 07/22/21 Range/Units 18:45 18:45 18:45 WBC 9.29 (3.98-10.04) K/mm3 RBC 4.89 (3.98-5.22) M/mm3 Hgb 12.6 D (11.2-15.7) gm/dl Hct 39.3 (34.1-44.9) % MCV 80.4 (79.4-94.8) fl MCH 25.8 (25.6-32.2) pg MCHC 32.1 L (32.2-35.5) g/dl RDW Std Deviation 45.6 (36.4-46.3) fL Plt Count 326 D (182-369) K/mm3 MPV 10.6 (9.4-12.3) fl Neut % (Auto) 73.9 H (34.0-71.1) % Lymph % (Auto) 18.7 L (19.3-51.7) % [place] % (Auto) 6.5 (4.7-12.5) % Eos % (Auto) 0.4 L (0.7-5.8) Baso % (Auto) 0.4 (0.1-1.2) % Neut # (Auto) 6.86 H (1.56-6.13) K/mm3 Lymph # (Auto) 1.74 (1.18-3.74) K/mm3 [place] # (Auto) 0.60 H (0.24-0.36) K/mm3 Eos # (Auto) 0.04 (0.04-0.36) K/mm3 Baso # (Auto) 0.04 (0.01-0.08) K/mm3 Sodium 138 (136-145) mEq/L Potassium 3.9 (3.5-5.1) mEq/L Chloride 102 (98-107) mEq/L Carbon Dioxide 28 (21-32) mEq/L Anion Gap 11.9 (5-15) BUN 11 (7-18) mg/dL Creatinine 0.7 (0.55-1.02) mg/dL Est Cr Clr Drug Dosing 105.01 mL/min Estimated GFR (MDRD) > 60 (>60) mL/min BUN/Creatinine Ratio 15.7 (14-18) Glucose 107 H (70-99) mg/dL Calcium 8.4 L D (8.5-10.1) mg/dL Total Bilirubin 0.3 (0.2-1.0) mg/dL GGT 20 (5-55) U/L AST 27 (15-37) U/L ALT 35 (14-59) U/L Alkaline Phosphatase 88 (46-116) U/L C-Reactive Protein 3.2 H* (<1.0) mg/dL Total Protein 7.0 (6.4-8.2) g/dl Albumin 3.0 L (3.4-5.0) g/dl Globulin 4.0 gm/dL Albumin/Globulin Ratio 0.8 L (1-2) Lipase 74 (73-393) U/L Urine Color (Yellow) Urine Appearance (Clear) Urine pH (5.0-8.0) Ur Specific [place] (1.005-1.030) Urine Protein (Negative) Urine Glucose (UA) (Negative) Urine Ketones (Negative) Urine Occult Blood (Negative) Urine Nitrite (Negative) Urine Bilirubin (Negative) Urine Urobilinogen (0.2-1.0) Ur Leukocyte Esterase (Negative) Urine RBC (0-5) /hpf Urine WBC (0-5) /hpf Ur Squamous Epith Cells (0-5) /hpf Urine Bacteria (FEW) /hpf Urine Mucus (FEW) /hpf Urine HCG, Qual (NEGATIVE) Influenza Type A RNA (NEGATIVE) Influenza Type B RNA (NEGATIVE) SARS-CoV-2 RNA ([place]) (NEGATIVE) 07/22/21 07/22/21 07/22/21 Range/Units 19:07 19:19 19:19 WBC (3.98-10.04) K/mm3 RBC (3.98-5.22) M/mm3 Hgb (11.2-15.7) gm/dl Hct (34.1-44.9) % MCV (79.4-94.8) fl MCH (25.6-32.2) pg MCHC (32.2-35.5) g/dl RDW Std Deviation (36.4-46.3) fL Plt Count (182-369) K/mm3 MPV (9.4-12.3) fl Neut % (Auto) (34.0-71.1) % Lymph % (Auto) (19.3-51.7) % [place] % (Auto) (4.7-12.5) % Eos % (Auto) (0.7-5.8) Baso % (Auto) (0.1-1.2) % Neut # (Auto) (1.56-6.13) K/mm3 Lymph # (Auto) (1.18-3.74) K/mm3 [place] # (Auto) (0.24-0.36) K/mm3 Eos # (Auto) (0.04-0.36) K/mm3 Baso # (Auto) (0.01-0.08) K/mm3 Sodium (136-145) mEq/L Potassium (3.5-5.1) mEq/L Chloride (98-107) mEq/L Carbon Dioxide (21-32) mEq/L Anion Gap (5-15) BUN (7-18) mg/dL Creatinine (0.55-1.02) mg/dL Est Cr Clr Drug Dosing mL/min Estimated GFR (MDRD) (>60) mL/min BUN/Creatinine Ratio (14-18) Glucose (70-99) mg/dL Calcium (8.5-10.1) mg/dL Total Bilirubin (0.2-1.0) mg/dL GGT (5-55) U/L AST (15-37) U/L ALT (14-59) U/L Alkaline Phosphatase (46-116) U/L C-Reactive Protein (<1.0) mg/dL Total Protein (6.4-8.2) g/dl Albumin (3.4-5.0) g/dl Globulin gm/dL Albumin/Globulin Ratio (1-2) Lipase (73-393) U/L Urine Color Yellow (Yellow) Urine Appearance Clear (Clear) Urine pH 8.0 (5.0-8.0) Ur Specific [place] 1.025 (1.005-1.030) Urine Protein Negative (Negative) Urine Glucose (UA) Negative (Negative) Urine Ketones Negative (Negative) Urine Occult Blood Negative (Negative) Urine Nitrite Negative (Negative) Urine Bilirubin Negative (Negative) Urine Urobilinogen 0.2 (0.2-1.0) Ur Leukocyte Esterase Negative (Negative) Urine RBC 0-5 (0-5) /hpf Urine WBC 0-5 (0-5) /hpf Ur Squamous Epith Cells 5-10 H (0-5) /hpf Urine Bacteria Moderate H (FEW) /hpf Urine Mucus Few (FEW) /hpf Urine HCG, Qual Negative (NEGATIVE) Influenza Type A RNA Negative (NEGATIVE) Influenza Type B RNA Negative (NEGATIVE) SARS-CoV-2 RNA ([place]) Negative (NEGATIVE) Meds: Medications Generic Name Dose Route Start Last Admin Trade Name Freq PRN Reason Stop Dose Admin Sodium Chloride 1,000 mls @ 999 mls/hr 07/22/21 18:45 07/22/21 18:58 Normal Saline IV 999 mls/hr ASDIRECTED BALWINDER Administration Ampicillin Sodium/Sulbactam 100 mls @ 200 mls/hr 07/22/21 22:03 Sodium 3 gm/ Sodium Chloride IV 07/22/21 22:32 ONETIME ONE Sodium Chloride 10 ml 07/22/21 18:40 07/22/21 18:58 Sodium Chloride 0.9% 10 Ml Syringe FLUSH 10 ml ASDIRECTED PRN Administration Keep Vein Open Discontinued Medications Generic Name Dose Route Start Last Admin Trade Name Freq PRN Reason Stop Dose Admin Fentanyl 50 mcg 07/22/21 21:45 07/22/21 22:00 Fentanyl 100 Mcg/2 Ml Sdv IVPUSH 07/22/21 21:46 50 mcg ONETIME ONE Administration Hydromorphone HCl 1 mg 07/22/21 18:40 07/22/21 18:58 Hydromorphone 1 Mg/Ml Syringe IVPUSH 12/29/21 18:41 1 mg ONETIME STA Administration Hydromorphone HCl 0.5 mg 07/22/21 19:48 07/22/21 19:57 Hydromorphone 0.5 Mg/0.5 Ml Syringe IVPUSH 07/22/21 19:49 0.5 mg ONETIME ONE Administration Iopamidol 50 ml 07/22/21 20:56 07/22/21 21:01 Iopamidol 612 Mg/Ml 50 Ml Sdv IVPUSH 07/22/21 20:57 50 ml ONETIME ONE Administration Iopamidol 100 ml 07/22/21 20:56 07/22/21 21:03 Iopamidol 612 Mg/Ml 100 Ml Bottle IVPUSH 07/22/21 20:57 100 ml ONETIME ONE Administration Iopamidol 100 ml 07/22/21 21:02 07/22/21 21:55 Iopamidol 612 Mg/Ml 100 Ml Bottle IVPUSH 07/22/21 21:03 100 ml ONETIME ONE Administration Ondansetron HCl 4 mg 07/22/21 18:40 07/22/21 18:58 Ondansetron 4 Mg/2 Ml Sdv IVPUSH 07/22/21 18:41 4 mg ONETIME ONE Administration Sodium Chloride 10 ml 07/22/21 20:56 07/22/21 21:01 Sodium Chloride 0.9% 10 Ml Syringe FLUSH 07/22/21 20:57 10 ml ONETIME ONE Administration - Re-Assessments/Exams Free Text/Narrative Re-Assessment/Exam: 07/22/21 18:46 Patient presents to the ER for her right upper quadrant abdominal pain along with nausea and vomiting. We will go ahead and do labs, get IV established with some pain meds, nausea meds, some fluids, patient will get a CT and ultrasound for ongoing management. 07/22/21 20:47 Patient's ultrasound demonstrates sludge in the gallbladder but no shadowing gallstones, gallbladder wall thickening or biliary duct dilatation. CT is still pending. Patient's labs demonstrate a normal white count, essentially normal metabolic panel, bilirubin was within normal limits at 0.3, lipase within normal limits at 74, CRP mildly elevated at 3.2. Urinalysis was negative for infection, and the COVID/flu was also negative. Patient was having a little bit more abdomen pain after having the ultrasound performed so she did receive another 0.5 mg IV Dilaudid for pain management. 07/22/21 21:48 CT did demonstrate some mild gallbladder wall thickening and adjacent stranding/fluid consistent with cholecystitis with nondilated bile ducts. I did discuss this case with Dr. Ireland our surgeon on-call, but unfortunately due to this patient's BMI being 51 he does not think she be a good candidate for surgery here but he told me to check with the [facility], I did call [facility] and she also stated that if the patient has a BMI over 50, that we are not allowed to do surgeries of that kind. I have called [facility] in [place] due to this being the patient's preference; however they were on diversion. [facility] does have beds available and Dr. Mario, hospitalist on-call does ultimately accept the patient in transfer. Patient states that the pain was not much better after the last 0.5 mg IV Dilaudid, so we will try 50 mcg of fentanyl for pain management. 07/22/21 22:04 Have ordered 3 g Unasyn to be given for ongoing management of the patient's cholecystitis. Departure - Departure Time of Disposition: 22:05 Disposition: DC/Tfer to Acute Hospital 02 Condition: Good Clinical Impression: Cholecystitis - Discharge Information Referrals: Floresita Melton NP [Primary Care Provider] - Forms: ED Department Discharge Sepsis Event Note (ED) - Evaluation Sepsis Screening Result: No Definite Risk - Focused Exam Vital Signs: Vital Signs Temp Pulse Resp BP Pulse Ox 07/22/21 18:18 98.7 F 69 24 H 144/116 H 100 - My Orders Last 24 Hours: My Active Orders 07/22/21 18:40 Peripheral IV Care [RC] . DIRECTED Abdomen Pelvis w Cont [CT] Stat Sodium Chloride 0.9% [Saline Flush] 10 ml FLUSH ASDIRECTED PRN Peripheral IV Insertion Adult [OM.PC] Stat 07/22/21 18:45 Sodium Chloride 0.9% [Normal Saline] 1,000 ml IV ASDIRECTED 07/22/21 22:03 Ampicillin/Sulbactam Na [Unasyn] 3 gm Sodium Chloride 0.9% [Normal Saline AdvBag] 100 ml IV ONETIME - Assessment/Plan Last 24 Hours: My Active Orders 07/22/21 18:40 Peripheral IV Care [RC] . DIRECTED Abdomen Pelvis w Cont [CT] Stat Sodium Chloride 0.9% [Saline Flush] 10 ml FLUSH ASDIRECTED PRN Peripheral IV Insertion Adult [OM.PC] Stat 07/22/21 18:45 Sodium Chloride 0.9% [Normal Saline] 1,000 ml IV ASDIRECTED 07/22/21 22:03 Ampicillin/Sulbactam Na [Unasyn] 3 gm Sodium Chloride 0.9% [Normal Saline AdvBag] 100 ml IV ONETIME
[2021-07-22] MEDS ORDERED: HYDROmorphone 0.5 MG/0.5 ML Syringe IVPUSH ONE (19:48)
[2021-07-22 20:04] LABS: CORONAVIRUS COVID-19 NAA NEGATIVE (NEGATIVE)
--- NOTE | 2021-07-22 20:06 | US ---
Limited abdominal ultrasound: Multiple real-time images of the upper right abdomen were obtained. Comparison: Prior abdominal x-ray of 05/22/19. Findings: Liver shows no focal abnormality. Gallbladder contains a small amount of sludge. No shadowing gallstones are seen. No gallbladder wall thickening or biliary dilatation is seen. Right kidney shows no hydronephrosis or mass. Right kidney has a length of 10.5 cm. Proximal aorta shows no aneurysm. Pancreas appears within normal limits. Inferior vena cava is patent. Main portal vein shows normal hepatopedal flow. Impression: 1. Sludge within the gallbladder. No shadowing gallstones, gallbladder wall thickening or biliary duct dilatation is seen. 2. Other portions of the right upper quadrant abdominal ultrasound appear within normal limits. Diagnostic code #2
[2021-07-22] MEDS ORDERED: Iopamidol 612 MG/ML 50 ML SDV IVPUSH ONE (20:56)
[2021-07-22] MEDS ORDERED: Iopamidol 612 MG/ML 100 ML Bottle IVPUSH ONE ×2 (20:56→21:02)
[2021-07-22] MEDS ORDERED: Sodium Chloride 0.9% 10 ML Syringe FLUSH ONE (20:56)
[2021-07-22] MEDS ORDERED: fentaNYL 100 MCG/2 ML SDV IVPUSH ONE ×2 (21:45→22:14)
[2021-07-22] MEDS ORDERED: Ampicillin/Sulbactam Na 3 GM in Sodium Chloride 0.9% 100 ML IV ONE (22:03)
--- NOTE | 2021-07-23 08:44 | CT ---
CT abdomen and pelvis Technique: Multiple axial sections were obtained from above the dome of the diaphragm inferiorly through the pubic symphysis. Intravenous and oral contrast were utilized. Delayed images were also obtained through the abdomen and pelvis. Reconstructed coronal and sagittal images were obtained. Comparison: No prior CT abdomen or pelvis study is available, previous limited abdominal ultrasound performed earlier on same day (7:22 PM) and prior abdominal x-ray of 05/22/19. Findings: Visualized lung bases show nothing acute. Liver contains no focal parenchymal abnormality. Gallbladder shows no calcified gallstones. Gallbladder is mildly prominent in size. Spleen is felt to be normal in size. Adrenal glands show no nodule. Pancreas is within normal limits. Kidneys show symmetric contrast enhancement without hydronephrosis or mass. Abdominal aorta shows no aneurysm. No retroperitoneal adenopathy is seen. No mesenteric abnormalities are seen. No pelvic mass or adenopathy is noted. Appendix is seen which is normal in size. Mild increased stool is seen within the colon. Delayed images show contrast excretion into both ureters as well as contrast within the bladder. Bone window settings were reviewed. Slight anterior wedging is noted at T12 which I believe is most likely old. No acute osseous finding is seen. Impression: 1. Slightly dilated gallbladder. No calcified gallstones are seen. If patient has gallbladder symptoms, recommend biliary HIDA scan with gallbladder ejection fraction to further evaluate. 2. Slight increased stool within the colon. 3. Slight anterior wedging of T12 most likely old. 4. No other acute abnormality is seen on CT study of the abdomen and pelvis. Diagnostic code #3 I agree with preliminary report from [facility], finalized on 07/22/21, 10:17 PM [facility], code 1
== END 2021-07-22 23:20 ==
LOC: JD.ED 17:52
DX: K81.9 Cholecystitis, unspecified (principal); K21.9 Gastro-esophageal reflux disease without esophagitis; E66.9 Obesity, unspecified; Z86.16 Personal history of COVID-19; Z20.822 Contact with and (suspected) exposure to COVID-19; Z68.43 Body mass index [BMI] 50.0-59.9, adult
CPT/HCPCS: 0240U; 36415; 74177; 76705; 80053; 81001; 81025; 82977; 83690; 85025; 86140; 96365; 96375; 96376; 99285; J0295; J1170; J2405; J3010; J7030; Q9967

== ENCOUNTER 2023-01-21 05:34 | Inpatient (IN) | payer OTHER ==
[~2023-01-21 05:34] MED LIST changes: -Sodium Chloride 0.9% 10 ML Syringe FLUSH PRN
[2023-01-21] MEDS ORDERED: Calcium Carbonate 500 MG Tab.Chew PO PRN (05:45)
[2023-01-21] MEDS ORDERED: Ondansetron 4 MG/2 ML SDV IVPUSH PRN ×3 (05:45→08:50)
[2023-01-21] MEDS ORDERED: Oxytocin/Lactated Ringers 10 UNIT/1,000 ML BAG IV SCH (05:45)
[2023-01-21] MEDS ORDERED: Citric Acid/Sodium Citrate Solution 30 ML Cup PO ONE ×2 (05:45→07:30)
[2023-01-21] MEDS ORDERED: Metoclopramide 10 MG/2 ML SDV IVPUSH ONE ×2 (05:45→07:30)
[2023-01-21] MEDS ORDERED: Phenylephrine 1% 10 MG/ML SDV ONE (06:37)
[2023-01-21] MEDS ORDERED: ceFAZolin 2 GM Vial ONE (06:37)
[2023-01-21] MEDS ORDERED: Morphine PF 1 MG/ML Amp ONE (06:37)
[2023-01-21 06:39] LABS: BASOPHILS ABSOLUTE AUTO 0.03 K/mm3 (0.01-0.08); BASOPHILS PERCENT AUTO 0.3 % (0.1-1.2); EOSINOPHILS ABSOLUTE AUTO 0.16 K/mm3 (0.04-0.36); EOSINOPHILS PERCENT AUTO 1.8 (0.7-5.8); HEMATOCRIT 33.8 % (34.1-44.9); HEMOGLOBIN 11.1 gm/dl (11.2-15.7); IMMATURE GRAN ABSOLUTE AUTO 0.02 K/mm3 (0.00-0.10); IMMATURE GRAN PERCENT AUTO 0.2 % (<=1.0); LYMPHOCYTES ABSOLUTE AUTO 2.99 K/mm3 (1.18-3.74); MEAN CORPUSCULAR HGB CONC 32.8 g/dl (32.2-35.5); MEAN CORPUSCULAR VOLUME 82.2 fl (79.4-94.8); MEAN PLATELET VOLUME 10.9 fl (9.4-12.3); MONOCYTES ABSOLUTE AUTO 0.71 K/mm3 (0.24-0.36); MONOCYTES PERCENT AUTO 8.1 % (4.7-12.5); NEUTROPHILS ABSOLUTE AUTO 4.88 K/mm3 (1.56-6.13); NEUTROPHILS PERCENT AUTO 55.6 % (34.0-71.1); PLATELET COUNT,PLT 275 K/mm3 (182-369); RED BLOOD CELL COUNT 4.11 M/mm3 (3.98-5.22); WHITE BLOOD CELL COUNT,WBC 8.79 K/mm3 (3.98-10.04)
[2023-01-21] MEDS ORDERED: Oxytocin 10 Units/1 ML SDV ONE (06:47)
[2023-01-21] MEDS ORDERED: HYDROmorphone 0.5 MG/0.5 ML Syringe IVPUSH PRN (08:19)
[2023-01-21] MEDS ORDERED: fentaNYL 100 MCG/2 ML SDV IVPUSH PRN ×2 (08:19→08:50)
[2023-01-21] MEDS ORDERED: Ondansetron 4 MG/2 ML SDV ONE (08:29)
[2023-01-21] MEDS ORDERED: Ketorolac 30 MG/ML SDV ONE (08:29)
[2023-01-21] MEDS ORDERED: diphenhydrAMINE 50 MG/ML SDV IVPUSH PRN ×2 (08:50→09:59)
[2023-01-21] MEDS ORDERED: Meperidine 50 MG/ML Vial IVPUSH PRN (08:50)
[2023-01-21] MEDS ORDERED: Acetaminophen/oxyCODONE 325-5 MG Tab PO PRN (09:59)
[2023-01-21] MEDS ORDERED: Ondansetron 4 MG/2 ML SDV IV PRN (09:59)
[2023-01-21] MEDS ORDERED: Docusate Sodium 100 MG Cap PO PRN (09:59)
[2023-01-21] MEDS ORDERED: Naloxone 0.4 MG/ML SDV IVPUSH PRN (09:59)
[2023-01-21] MEDS ORDERED: Dextrose 5%-Lactated Ringers 1,000 ML IV SCH (09:59)
[2023-01-21] MEDS: Acetaminophen/oxyCODONE 325-5 MG Tab PO PRN ×2 (12:02→16:06)
[2023-01-21] MEDS ORDERED: Ketorolac 30 MG/ML SDV IVPUSH SCH (14:30)
[2023-01-21] MEDS ORDERED: FLUoxetine 20 MG Cap PO SCH (21:00)
[2023-01-22] MEDS ORDERED: Ibuprofen 600 MG Tab PO PRN (08:30)
== END 2023-01-21 18:00 | disposition home or self-care (01) | DRG 788 ==
LOC: JD.OB 05:34
PROVIDERS: ADMIT Obstetrics & Gynecology; ATTEND Obstetrics & Gynecology
PROC: 10D00Z1 Extraction of Products of Conception, Low, Open Approach (ICD-10-PCS; principal; 2023-01-21)
DX: O40.3XX0 Polyhydramnios, third trimester, not applicable or unspecified (principal); O34.211 Maternal care for low transverse scar from previous cesarean delivery; J45.909 Unspecified asthma, uncomplicated; O99.52 Diseases of the respiratory system complicating childbirth; Z37.0 Single live birth; Z3A.37 37 weeks gestation of pregnancy
CPT/HCPCS: 36415; 59025; 85025; 86592; 86850; 86900; 86901; A9270-GY; J0690; J1200; J1885; J2274; J2370; J2405; J2590; J2765; J7120; J7121